=== PATIENT | female | born 1950 | race Caucasian/White ===

== ENCOUNTER 2016-10-04 12:08 | Emergency (ER) | payer OTHER, MEDICARE ==
[~2016-10-04] VITALS: Ht 162.6 cm; Wt 77.1 kg
[~2016-10-04 12:08] MED LIST: AUGMENTIN 875 M1 TAB PO; AUGMENTIN 875-1 EACH PO; HYDRODIURIL 112.5 M1 PO; LABETALOL HCL200 M1 PO; LEVSIN-SL0.125 MG PO; OMEPRAZOLE40 MG PO
--- NOTE | 2016-10-04 12:25 | ED SYNCOPE COMPLAINT ---
History of Present Illness General Chief Complaint: Syncope and Near-Syncope Stated Complaint: SYNCOPAL EPISODE THIS AM Source: patient, old records Exam Limitations: no limitations Vital Signs & Intake/Output Vital Signs & Intake/Output Vital Signs Date Time Temp Pulse Resp B/P B/P Pulse O2 O2 Flow FiO2 Mean Ox Delivery Rate 10/04 1425 98.2 58 20 160/68 97 Room Air 10/04 1233 98.2 74 20 133/73 98 Room Air Allergies Coded Allergies: Tetanus Vaccines and Toxoid (TETANUS VACCINES & TOXOID) (UNKNOWN 09/29/15) Uncoded Allergies: SEASONAL AND DUST (09/29/15) Reconcile Medications Cetirizine HCl (Zyrtec) 10 MG TABLET 1 TAB PO DAILY ALLERGIES (Reported) Cholecalciferol (Vitamin D3) (Vitamin D) 1,000 UNIT TABLET 1 TAB PO DAILY SUPPLEMENT (Reported) Docusate Sodium (Stool Softener) 100 MG CAPSULE 1 CAP PO DAILY STOOL SOFTENER (Reported) Hydrochlorothiazide 12.5 MG CAPSULE 1 CAP PO DAILY WATER RETENTION (Reported) Labetalol HCl 200 MG TABLET 1 TAB PO BID HBP (Reported) Lisinopril 10 MG TABLET 1 TAB PO DAILY HEART (Reported) Meclizine HCl 25 MG TABLET 1 TAB PO TIDPRN PRN dizziness Potassium Chloride 10 MEQ TABLET.ER 1 TAB PO DAILY SUPPLEMENT (Reported) Pravastatin Sodium 40 MG TABLET 1 TAB PO DAILY CHOLESTEROL (Reported) Triage Note: C/O SYNCOPAL EPISODE AT HOME WHILE WALKING IN BEDROOM. STATE SHE FELT WEAK AND DIZZY PRIOR TO INCIDENT. RECENTLY DXD WITH VERTIGO BY DR. PAIGE, JUST FINSHED PREDNISONE. C/O PAIN IN EPIGASTRIC AREA AND LEFT KNEE. Triage Nurses Notes Reviewed? yes Timing: single episode today Precipitating Factors: lightheadedness Loss of Consciousness: brief (seconds) Associated Symptoms: anterior chest pain from fall reproducible with palpation HPI: 66 year old female with history of HTN, GERD, fibromyalgia, hiatal hernia, depressive disorder, esophageal repair, total abdominal hysterectomy, left knee replacement presents emergency room with her for evaluation after she had a brief syncopal episode while home person one hour prior to arrival. Patient states that she was in her normal state of health this morning woke up had breakfast and was feeling okay. She states that she had the urge to defecate and when she was walking to the bathroom she became lightheaded and states she briefly lost consciousness. She struck her chest against the hardwood floor. She did not hit her head she states her states there is been no change in her mental status. She denies nausea vomiting headache neck or back pain. The chest pain is worse with change in position and movement palpation and laughing very no cough no hemoptysis. No abdominal pain. She denies any arm injury. She's also complaining of right anterior knee pain is nonradiating. No hip foot or ankle pain numbness or tingling she is not taken anything for symptoms no history of syncope in the past. She finished a course of prednisone yesterday for recently diagnosed vertigo last week. She denies any dizziness or vision changes. she took her bp after the fall and her systolic was 94 per the pat. no change in mental status per (CONSTANTINE PARKER) Past History Travel History Traveled to [place] past 21 day No Medical History Any Pertinent Medical History? 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 No (CONSTANTINE PARKER) Review of Systems Review of Systems Constitutional: Reports: see HPI. All Other Systems: Reviewed and Negative Comments Review of systems: See HPI, All other systems negative. Constitutional, no chills no fever, no malaise no weight loss HEENT: No visual changes no sore throat no congestion, no ear pain Cardiovascular: No chest pain , no palpitation , no orthopnea Skin: no rashes, no change in skin Respiratory: No dyspnea no cough no sputum no hemoptysis GI: No nausea no vomiting, no diarrhea, no bloating/constipation : No dysuria No hematuria, no frequency, no discharge Muscle skeletal: No joint pain, no joint swelling, no back pain, no neck pain, Neurologic: No numbness no confusion, no headache Psych: No stress no depression,. Heme/endocrine: No bruising no bleeding Immunology: No lymphadenopathy (CONSTANTINE PARKER) Physical Exam Physical Exam General Appearance: well developed/nourished, alert, awake Cranial Nerves: normal hearing, normal speech, PERRL Comments: Well-developed well-nourished person in no acute distress HEENT: Normal EENT exam; PERRL, EOMI, no nystagmus. HEAD is atraumatic. moist mucous membranes. Neck: Supple, no lymphadenopathy, normal range of motion without pain or tenderness Back: Nontender, Full range of motion Cardiovascular: Regular rate and rhythms no murmurs rubs or gallops, normal JVP Respiratory: Right sided anterior Chest tender, no ecchymosis .There were no bony deformities, no asymmetry. No respiratory distress. Patient speaking in full complete sentences. Breath sounds clear to auscultation bilaterally: NO W/R /R Abdomen: Soft, nontender nondistended, no appreciable organomegaly. Normal bowel sounds. No rebound/guarding, No appreciable enlargement of the abdominal aorta, No ascites. UPPER Extremity: No edema, full range of motion of extremities, normal and equal pulses bilaterally, 5 out of 5 strength noted to bilateral upper extremities Hip/Pelvis: Atraumatic/Stable. FROM. No pain with pelvic compression Knee: Atraumatic/stable. FROM. No joint swelling, no effusion. No laxity. No pain with ROM Leg: Atraumatic. Nontender. No edema, 5 out of 5 strength in the lower extremity, normal dorsiflexion of great toe bilaterally, gross sensation is intact. Ankle/Foot: Atraumatic/stable. Skin intact. FROM. No swelling, no effusion. No laxity on exam Pulses: Normal/equal DP/PT pulses bilaterally. Brisk cap refill Neuro: Alert oriented x3, motor sensory normal, cranial nerves II through XII grossly intact. There were no obvious focal neurologic abnormalities. Skin: No appreciable rash on exposed skin, skin is warm and dry. Psych: Mood and affect is normal, memory and judgment is normal. Core Measures ACS in differential dx? Yes CVA/TIA Diagnosis: No Severe Sepsis Present: No Septic Shock Present: No (CONSTANTINE PARKER) Progress Differential Diagnosis: AMI, drug induced syncope, orthostatic syncope, other valvular disease, pulmonary embolus, seizure, subarachnoid hem., ventricular tach/fib, arrhythmia vasovagal episode Plan of Care: Orders Procedure Date/time Status Regular Diet 10/04 D Active TROPONIN LEVEL 10/04 1700 Complete EKG 10/04 1700 Active MISTAKE 10/04 1239 Active Telemetry/Equipment Sterilizer 10/04 1239 Active TROPONIN LEVEL 10/04 1239 Complete MAGNESIUM 10/04 1239 Complete COMPREHENSIVE METABOLIC PANEL 10/04 1239 Complete CBC WITHOUT DIFFERENTIAL 10/04 1239 Complete EKG 10/04 1218 Active Laboratory Tests 10/04/16 1702: Troponin I < 0.01 10/04/16 1255: Anion Gap 11, Estimated GFR 41 L, BUN/Creatinine Ratio 26.2 H, Glucose 100 H, Calcium 9.6, Magnesium 1.6, Total Bilirubin 0.5, AST 15, ALT 29, Alkaline Phosphatase 79, Troponin I < 0.01, Total Protein 6.5, Albumin 3.9, Globulin 2.6, Albumin/Globulin Ratio 1.5, CBC w Diff NO MAN DIFF REQ, RBC 4.24, MCV 91.0, MCH 30.9, RDW 14.2, MPV 7.8, Gran % 71.6, Lymphocytes % 19.8 L, Monocytes % 5.3, Eosinophils % 3.0, Basophils % 0.3, Absolute Granulocytes 7.1 H, Absolute Lymphocytes 2.0, Absolute Monocytes 0.5, Absolute Eosinophils 0.3, Absolute Basophils 0, PUBS MCHC 33.9 Labs ordered old records reviewed Tylenol by mouth ordered x-rays ordered case discussed with Dr. Landry. 10/04/2016 2:08:14 PM I discussed with the patient all her lab results the need for repeat troponin and EKG at 1700 pending x-ray Discussed with patient her x-ray findings she is resting, but this time declining anything else for pain when offered 10/04/2016 6:02:30 PM I discussed with the patient at length all of their results. I had an extensive conversation regarding need for close follow up with their primary care physician this week as well as return precautions. I answered all of their questions, they feel comfortable with the plan and follow-up care. I discussed the medications that they will receive with the patient. I gave them signs and symptoms that could indicate an adverse reaction. I have advised them to limit their activities until they can see how they respond to the medication. (VERÓNICA HOSKINS,CONSTANTINE) Diagnostic Imaging: Viewed by Me: Radiology Read. Discussed w/RAD: Radiology Read. Radiology Impression: PATIENT: RAJENDRA FRANCO PRESENT AGE: 66 PATIENT ACCOUNT NO: [id number] : 49 LOCATION: [facility] ORDERING PHYSICIAN: CONSTANTINE HOSKINS SERVICE DATE: 10/04/16 EXAM TYPE: RAD - XRY-RIBS UNILATERAL-RIGHT EXAMINATION: XR RIBS, RIGHT CLINICAL INFORMATION : Syncope. Fall. Rib pain. COMPARISON: Chest x-ray 04/09/2015. TECHNIQUE: 3 views of the right ribs were obtained. FINDINGS: The heart is normal in size. The lungs are clear. There is mild elevation of the right hemidiaphragm, slightly less pronounced than the prior study. There is no apparent rib fracture. There is a stable scoliosis of the spine. IMPRESSION: No apparent right rib fractures. DICTATED BY: KELLY GONCALVES MD DATE/TIME DICTATED:1408 WEIGHER PRODUCTION:[employer].GREGORIO DATE/TIME TRANSCRIBED:10/04/161408 CONFIDENTIAL, DO NOT COPY WITHOUT APPROPRIATE AUTHORIZATION. <Electronically signed in Other Vendor System> SIGNED BY: KELLY GONCALVES MD 10/04/16 1415 , PATIENT: RAJENDRA FRANCO PRESENT AGE: 66 PATIENT ACCOUNT NO: [id number] : 49 LOCATION: [facility] ORDERING PHYSICIAN: CONSTANTINE HOSKINS SERVICE DATE: 10/04/16-1245 EXAM TYPE: RAD - XRY-KNEE COMPLETE RIGHT EXAMINATION: XR KNEE, RIGHT CLINICAL INFORMATION: Fall. Pain. COMPARISON: None TECHNIQUE: Four views of the right knee. FINDINGS: No acute fracture or subluxation. Mild medial compartment joint space narrowing. No joint effusion. Mild anterior soft tissue prominence at the proximal tibia. IMPRESSION : No acute fracture or malalignment. Mild degenerative changes. DICTATED BY: WOLF CARRILLO MD DATE/TIME DICTATED:10/04/161407 WEIGHER PRODUCTION: GREGORIO DATE/TIME TRANSCRIBED:10/04/161407 CONFIDENTIAL, DO NOT COPY WITHOUT APPROPRIATE AUTHORIZATION. <Electronically signed in Other Vendor System> SIGNED BY: WOLF CARRILLO MD 10/04/16 1415 Initial ED EKG: normal sinus rhythm at 70, no acute ST segment changes. Normal axis Prior EKG: unchanged Repeat EKG: unchanged Rhythm Strip: normal sinus rhythm (CONSTANTINE PARKER) Departure Departure Time of Disposition: 1754 Disposition: HOME OR SELF CARE Condition: Stable Clinical Impression Primary Impression: Vasovagal syncope Secondary Impressions: Rib contusion Referrals: LISA ROBERTSON,ULISES Santamaria (PCP/Family) Additional Instructions: Meclizine as directed. This was sent to [facility]. Follow up with her primary care physician this week. [place] diet drink plenty of clear fluids. Return anytime sooner with any concerns. Departure Forms: Customer Survey General Discharge Information Prescriptions: Current Visit Scripts Meclizine HCl 1 TAB PO TIDPRN PRN dizziness #15 TAB (CONSTANTINE PARKER) PA/ORDERING MACHINE OPERATOR Co-Sign Statement Statement: ED Attending supervision documentation- [X] I saw and evaluated the patient. I have also reviewed all the pertinent lab results and diagnostic results. I agree with the findings and the plan of care as documented in the PA's/ORDERING MACHINE OPERATOR's documentation. [X] I have reviewed the ED Record and agree with the PA's/ORDERING MACHINE OPERATOR's documentation. [] Additions or exceptions (if any) to the PAs/ORDERING MACHINE OPERATOR's note and plan are summarized below: [] (RAMYA ROBERTSON,TIERA)
[2016-10-04] MEDS ORDERED: POTASSIUM CHLO10 ME4 PO (12:38)
[2016-10-04] MEDS ORDERED: LISINOPRIL10 M1 PO (12:39)
[2016-10-04] MEDS ORDERED: HYDROCHLOROTH12.5 M3 PO (12:39)
[2016-10-04] MEDS ORDERED: PRAVASTATIN SOD40 M2 PO (12:39)
[2016-10-04] MEDS ORDERED: VITAMIN D1000 UNIT PO (12:41)
[2016-10-04] MEDS ORDERED: STOOL SOFTENER100 M3 PO (12:42)
[2016-10-04] MEDS ORDERED: ZYRTEC10 M3 PO (12:42)
[2016-10-04 13:19] LABS: ABSOLUTE BASOPHIL COUNT 0 /CUMM (0.0-0.2); ABSOLUTE EOSINOPHIL COUNT 0.3 /CUMM (0.0-0.7); ABSOLUTE GRANULOCYTE CT 7.1 /CUMM (1.4-6.5); ABSOLUTE MONOCYTE COUNT 0.5 /CUMM (0.10-0.60); BASOPHIL % 0.3 % (0.0-2.0); GRANULOCYTE % 71.6 % (42.2-75.2); HEMATOCRIT 38.6 % (37-47); MEAN CORPUSCULAR HGB 30.9 PG (27.0-31.0); MEAN CORPUSCULAR HGB CONC 33.9 G/DL (33.0-37.0); MEAN PLATELET VOLUME 7.8 FL (7.4-10.4); PLATELET COUNT 277 /CUMM (130-400); RBC DISTRIBUTION WIDTH 14.2 % (11.5-14.5); RED BLOOD CELL CT 4.24 /CUMM (4.20-5.40); WHITE BLOOD CELL COUNT 9.9 /CUMM (4.8-10.8)
--- NOTE | 2016-10-04 14:15 | RADIOLOGY REPORT ---
EXAMINATION: XR KNEE, RIGHT CLINICAL INFORMATION: Fall. Pain. COMPARISON: None TECHNIQUE: Four views of the right knee. FINDINGS: No acute fracture or subluxation. Mild medial compartment joint space narrowing. No joint effusion. Mild anterior soft tissue prominence at the proximal tibia. IMPRESSION: No acute fracture or malalignment. Mild degenerative changes.
--- NOTE | 2016-10-04 14:15 | RADIOLOGY REPORT ---
EXAMINATION: XR RIBS, RIGHT CLINICAL INFORMATION: Syncope. Fall. Rib pain. COMPARISON: Chest x-ray 04/09/2015. TECHNIQUE: 3 views of the right ribs were obtained. FINDINGS: The heart is normal in size. The lungs are clear. There is mild elevation of the right hemidiaphragm, slightly less pronounced than the prior study. There is no apparent rib fracture. There is a stable scoliosis of the spine. IMPRESSION: No apparent right rib fractures.
[2016-10-04 14:25] VITALS: BP 160/68
[2016-10-04] MEDS ORDERED: MECLIZINE HCL25 MG PO (17:56)
== END 2016-10-04 18:00 ==
LOC: ERH 12:08
PROVIDERS: Physician Assistant Medical
DX: R55 Syncope and collapse (principal); S20.219A Contusion of unspecified front wall of thorax, initial encounter; R07.9 Chest pain, unspecified; W19.XXXA Unspecified fall, initial encounter; Y92.009 Unspecified place in unspecified non-institutional (private) residence as the place of occurrence of the external cause; Y93.9 Activity, unspecified
CPT/HCPCS: 71100-RT; 73562-RT; 93005; 93010

== ENCOUNTER 2017-09-06 14:33 | Inpatient (IN) | payer OTHER, MEDICARE ==
[~2017-09-06] VITALS: Ht 162.6 cm; Wt 76.0 kg
[~2017-09-06 14:33] MED LIST changes: +HYDROCHLOROTH12.5 M3 PO; +LISINOPRIL10 M1 PO; +MECLIZINE HCL25 MG PO; +POTASSIUM CHLO10 ME4 PO; +PRAVASTATIN SOD40 M2 PO; +STOOL SOFTENER100 M3 PO; +VITAMIN D1000 UNIT PO; +ZYRTEC10 M3 PO
--- NOTE | 2017-09-06 14:42 | ED DYSPNEA/ASTHMA COMPLAINT ---
History of Present Illness General Chief Complaint: Upper Respiratory Sx/Fever Stated Complaint: RESPIRATORY DIFFICULTY POST COLONOSCOPY Source: patient, old records Exam Limitations: no limitations Vital Signs & Intake/Output Vital Signs & Intake/Output Vital Signs Date Time Temp Pulse Resp B/P B/P Pulse O2 O2 Flow FiO2 Mean Ox Delivery Rate 09/06 2312 Nasal Cannula 09/06 2235 99.1 86 16 178/84 97 Nasal 2.0L Cannula 09/06 2030 100.7 09/06 1917 100.7 89 18 180/92 96 Nasal 2.0L Cannula 09/06 1858 96 Nasal 2.0L Cannula 09/06 1714 87 18 174/84 94 Nasal 2.5L Cannula 09/06 1610 92 Nasal 2.0L Cannula 09/06 1458 99.5 88 22 188/90 98 Nasal 1.5L Cannula 09/06 1457 96 Nasal 2.0L Cannula ED Intake and Output 09/07 0000 09/06 1200 Intake Total 1000 Output Total Balance 1000 Intake, IV 1000 Patient 163 lb Weight Weight Reported by Patient Measurement Method Allergies Coded Allergies: Tetanus Vaccines and Toxoid (TETANUS VACCINES & TOXOID) (UNKNOWN 09/29/15) Uncoded Allergies: SEASONAL AND DUST (09/29/15) Triage Note: PT BROUGHT FROM GI AFTER DESATURATION INTO 60s DURING COLONOSCOPY AFTER REPOSITION ON TABLE. PT BAGGED AND IMPROVED TO 90s. POST PROCEDURE, O2 SAT AT 98% ON NRB. HOWEVER, PT WITH INCREASED SECRETIONS RANGING FROM YELLOW TO BROWN-TINGED, WET, PRODUCTIVE COUGH. AUDIBLE WHEEZE AND CRACKLES. MILDLY HYPERTENSIVE, BUT STABLE. COUGH IS CHRONIC FOR 5+ YEARS, BUT CURRENTLY WORSE THAN BASELINE. O2 SAT ON ARRIVAL 95% ON 2L MO Triage Nurses Notes Reviewed? 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 Rothman and after the procedure patient had acute onset of significant coughing episodes unrelieved with nebulizer treatment patient does state that today prior to onset of the procedure she had no complaints it is noted through progress notes that patient was given nebulizer oxygen saturation supplementation Patient denies any chest pain arm pain jaw pain Patient is complaining of mild nausea with the persistent coughing. It is noted at approximate 9 days ago patient had a routine endoscopy performed with no competitions (Lico Pyle) Reconcile Medications Albuterol Sulfate (Ventolin Hfa) 90 MCG HFA.AER.AD 2 PUF INH PRN ASTHMA ( Reported) Benzonatate 200 MG CAPSULE 1 CAP PO TIDPRN PRN COUGH (Reported) Folic Acid 1 MG TABLET 1 TAB PO DAILY SUPPLEMENT (Reported) Hydrochlorothiazide 12.5 MG CAPSULE 1 CAP PO DAILY WATER RETENTION (Reported) Labetalol HCl 200 MG TABLET 1 TAB PO BID HBP (Reported) Lisinopril 10 MG TABLET 1 TAB PO DAILY HEART (Reported) Methimazole 5 MG TABLET 1 TAB PO MONWEDFRISUN THYROID (Reported) Methotrexate 2.5 MG TABLET 3 TAB PO QTHURS RA (Reported) Montelukast Sodium 10 MG TABLET 1 TAB PO DAILY ALLERGIES/ASTHMA (Reported) Mv,Ca,Min/Iron Fum/FA/Vit K (Multi For Her Tablet) 18 MG IRON-600 MCG-80 MCG TABLET 1 TAB PO DAILY SUPPLEMENT (Reported) Potassium Gluconate (Potassium) 595 MG (99 MG) TABLET 1 TAB PO DAILY SUPPLEMENT (Reported) Pravastatin Sodium 40 MG TABLET 1 TAB PO DAILY CHOLESTEROL (Reported) (John ROBERTSON,Paramjit Garcia) Past History Medical History Any Pertinent Medical History? see below for history Neurological: NONE EENT: TORN ESOPHAGUS Cardiovascular: hypertension Respiratory: PARALYZED R DIAPHRAM Gastrointestinal: diverticulitis, GERD Hepatic: NONE Renal: KIDNEY CYST Musculoskeletal: fibromyalgia, ARTHRITIS Psychiatric: NONE Endocrine: NONE Blood Disorders: NONE Cancer(s): SKIN CANCER ON HANDS ?LESION ON SPLEEN OCCASIONAL CAREGIVER/Reproductive: NONE History of MRSA: No History of VRE: No History of CDIFF: No Surgical History Surgical History: non-contributory Psychosocial History Who do you live with Spouse Services at Home None What is your primary language Ma[place] Family History Hx Contributory? No (iLco Pyle) Review of Systems Review of Systems Constitutional: Reports: see HPI. Denies: chills, fever. EENTM: Reports: no symptoms. Respiratory: Reports: see HPI, cough. Cardiovascular: Reports: no symptoms. GI: Reports: see HPI. Genitourinary: Reports: no symptoms. Musculoskeletal: Reports: no symptoms. Skin: Reports: no symptoms. Neurological/Psychological: Reports: no symptoms. Hematologic/Endocrine: Reports: no symptoms. Immunologic/Allergic: Reports: no symptoms. All Other Systems: Reviewed and Negative (Lico Pyle) Physical Exam Physical Exam General Appearance: mild distress Head: atraumatic Eyes: Bilateral: normal appearance. Ears, Nose, Throat: hearing grossly normal Respiratory: DECREASE BREATH SOUNDS IN THE LEFT POSTERIOR LUNG Cardiovascular: regular rate/rhythm Peripheral Pulses: 2+ radial (R) Gastrointestinal: normal bowel sounds, soft, non-tender Neurologic/Psych: no motor/sensory deficits, awake Skin: intact Core Measures ACS in differential dx? Yes CVA/TIA Diagnosis No Sepsis Present: No Sepsis Focused Exam Completed? No (Lico Pyle) Progress Differential Diagnosis: asthma, AMI, bronchitis, costochondritis, CHF, COPD, musculoskeletal pain, pericarditis, pulmonary embolism, pneumonia, pneumothorax, rib fracture, unstable angina Plan of Care: Orders Procedure Date/time Status Nothing by Mouth 09/07 B Active CBC WITHOUT DIFFERENTIAL 09/07 06 Active BASIC ELECTROLYTES PLUS BUN&CR 09/07 06 Active Pathway - chart 09/06 2129 Active House Staff 09/06 2129 Active Patient Data 09/06 2129 Active Code Status 09/06 2129 Active Patient Data 09/06 2116 Active Saline Lock 09/06 2104 Active Misc Message 09/06 2104 Active ED Holding Orders 09/06 2104 Active Admit to inpatient 09/06 2104 Active Vital Signs 09/06 2104 Active Code Status 09/06 2104 Complete RAPID VIRAL INFLUENZA A 09/06 202 Complete EKG 09/06 1905 Active Intake & Output 09/06 1855 Active BLOOD CULTURE 09/06 1707 Active LOWER RESPIRATORY CULTURE 09/06 1531 Active TROPONIN LEVEL 09/06 1531 Complete D-DIMER 09/06 1531 Complete COMPREHENSIVE METABOLIC PANEL 09/06 1531 Complete CBC WITHOUT DIFFERENTIAL 09/06 1531 Complete EKG 09/06 1531 Active SWALLOW EVALUATION 09/06 UNK Active TRC EVALUATION (GEN) 09/06 UNK Active AEROSOL (GEN) 09/06 UNK Active VTE Mechanical Prophylaxis 09/06 UNK Active Precautions 09/06 UNK Active Current Medications Sig/Mikaela Start time Last Medication Dose Stop Time Status Admin Pravastatin Sodium 20 MG 1700 09/07 1700 AC (Pravachol) Folic Acid 1 MG DAILY 09/07 1000 AC (Folic Acid) Hydrochlorothiazide 12.5 MG DAILY 09/07 1000 AC (Hydrodiuril) Lisinopril 10 MG DAILY 09/07 1000 AC (Prinivil) Montelukast Sodium 10 MG DAILY 09/07 1000 AC (Singulair) Ampicillin Sodium/ 1,500 MG Q6 09/06 2359 AC Sulbactam Sodium (Unasyn) Sodium Chloride 100 ML (Normal Saline 0.9%) Albuterol Sulfate 2 PUF 4 TIMES/DAY PRN 09/06 2345 AC (Ventolin) Methimazole 5 MG .[MONWEDFRISUN] 09/06 234 UNVr (Tapazole 5 MG Tablet) Sodium Chloride 1,000 ML Q10H 09/06 2345 AC (Normal Saline 0.9%) Guaifenesin 600 MG Q12 09/06 2338 AC (Mucinex) Labetalol HCl 200 MG BID 09/06 2335 AC (Trandate-Normodyne 200MG Tab) Benzonatate 100 MG TID 09/06 233 AC (Tessalon Capsule) Heparin Sodium 5,000 UNIT Q8 09/06 2200 AC 09/06 (Porcine) 2225 Laboratory Tests 09/06/17 1645: Anion Gap 13, Estimated GFR 41 L, BUN/Creatinine Ratio 14.6, Glucose 131 H, Calcium 9.7, Total Bilirubin 0.6, AST 17, ALT 25, Alkaline Phosphatase 77, Troponin I < 0.01, Total Protein 6.3, Albumin 3.6, Globulin 2.7, Albumin/ Globulin Ratio 1.3, D-Dimer High Sensitivty 6437 H, CBC w Diff NO MAN DIFF REQ, RBC 3.64 L, MCV 93.0, MCH 31.3 H, MCHC 33.6, RDW 14.3, MPV 6.9 L, Gran % 92.2 H, Lymphocytes % 5.0 L, Monocytes % 2.5, Eosinophils % 0.3, Basophils % 0, Absolute Granulocytes 10.4 H, Absolute Lymphocytes 0.6 L, Absolute Monocytes 0.3, Absolute Eosinophils 0, Absolute Basophils 0 Microbiology 09/06 2229 NASOPHARYN: Influenza Virus A & B Rapid Smear - COMP 09/06 1825 BLOOD: Blood Culture - RECD 09/06 1815 BLOOD: Blood Culture - RECD 09/06 1550 LOWER RESP: Respiratory Culture - RES 09/06 1550 LOWER RESP: Gram Stain - RES Patient upon initial examination was noted to be significantly coughing up yellow sputum culture was obtained patient has concerns of bronchospasms no hypoxia however Patient was given guaifenesin which improved her coughing episodes and nebulizer treatments CT scan was resulted showing concerns of multilobar pneumonia and patchy infiltrates patient also had fever in the emergency room patient was given Unasyn for possible early infiltrate aspiration pneumonia in which she states that prior to the procedure she was in her normal state health however she does have a chronic cough Discussed admission with patient and family members were aware Diagnostic Imaging: Viewed by Me: CT Scan. Radiology Impression: acute abnormality Initial ED EKG: MULTIPLE ARTIFACT 108 BPM, Comments: PATIENT: RAJENDRA FRANCO PRESENT AGE: 67 PATIENT ACCOUNT NO: [id number] : 49 LOCATION: [facility] ORDERING PHYSICIAN: Lico HOSKINS SERVICE DATE: 09/06/17 EXAM TYPE: CAT - CTA CHEST-PULMONARY EMBOLISM EXAMINATION: CT ANGIOGRAM OF THE CHEST WITH AND WITHOUT CONTRAST (CT PULMONARY ANGIOGRAM FOR PE) CLINICAL INFORMATION: Reason for Study:
Presumptive Dx: COUGH, HEMOPTYSIS, ELEVATED DIMER
Signs Symptoms: RM 22
COMPARISON: 03/05/2012 TECHNIQUE: Prior to contrast administration, noncontrast localization images were obtained. Subsequently, multidetector volumetric imaging was performed from the thoracic inlet to below the diaphragms following the administration of 80 mL Omnipaque 350 intravenous contrast. No contrast reaction reported. Sagittal, coronal, and MIP oblique sagittal reformatted images were obtained on the CT workstation, uploaded to PACS, and reviewed. FINDINGS: There is no filling defect to suggest a pulmonary embolism. Imaging of the lung posadas. Centrally there is no evidence for bulky adenopathy. The hilar regions are comparable to previous. No bulky changes here. Imaging lung posadas. Right lung; Nodule in the right upper lung. Appears stable from previous. Image 17. 3 mm. Patchy atelectasis or infiltrate right base. New nodule at the left base. 4 mm. Image 33. Left lung; Areas of groundglass and patchy infiltrate multifocal left upper lung. Is also evidence of groundglass patchy change in the left lower lobe. There is no effusion here. New nodule left base image 32. 3 mm. Another nodule pleural-based. Image 34. 4 mm. IMPRESSION: No filling defect to suggest pulmonary embolism. Multifocal patchy infiltrate most noted in the left upper lung but also areas of the left base greater than right base. Consistent with infiltrates. Other nodules described which appears new from previous.. Recommend low-dose follow-up in 9 months DICTATED BY: Jordy Baez MD DATE/TIME DICTATED:09/06/172028 (Lico Pyle) Departure Departure Disposition: STILL A PATIENT Condition: Stable Clinical Impression Primary Impression: Pneumonia Secondary Impressions: Bronchospasm, Fever Referrals: Allen Villa MD (PCP/Family) Departure Forms: Customer Survey General Discharge Information Admission Note Spoke With: Alhaji Feliciano MD Documentation of Exam: Documentation of any treatments & extenuating circumstances including Concerns Regarding Discharge (functional status, medication knowledge or non-compliance, living conditions, etc.) that warrant an admission rather than observation: [ Patient requires IV antibiotics pulmonary consultation and infectious disease consultation and repeat labs nebulizer treatments antipyretics blood culture and sputum culture pending] (Lico Pyle) PA/[employer] Co-Sign Statement Statement: ED Attending supervision documentation- [x] I saw and evaluated the patient. I have also reviewed all the pertinent lab results and diagnostic results. I agree with the findings and the plan of care as documented in the PA's/[employer]'s documentation. 09/06/17, 19:30.... pt with likely aspiration pneumonia, after colonoscopy, diminished breath sounds on exam, merits 02 support and iv abx. [] I have reviewed the ED Record and agree with the PA's/[employer]'s documentation. [] Additions or exceptions (if any) to the PAs/[employer]'s note and plan are summarized below: [] (John ROBERTSON,Paramjit Garcia) Critical Care Note Critical Care Note Critical Care Time: 30-74 min (Lico Pyle)
[2017-09-06 17:11] LABS: ABSOLUTE BASOPHIL COUNT 0 /CUMM (0.0-0.2); ABSOLUTE EOSINOPHIL COUNT 0 /CUMM (0.0-0.7); ABSOLUTE GRANULOCYTE CT 10.4 /CUMM (1.4-6.5); ABSOLUTE LYMPH COUNT 0.6 /CUMM (1.2-3.4); ABSOLUTE MONOCYTE COUNT 0.3 /CUMM (0.10-0.60); BASOPHIL % 0 % (0.0-2.0); EOSINOPHIL % 0.3 % (0-5); HEMATOCRIT 33.9 % (37-47); MEAN CORPUSCULAR HGB 31.3 PG (27.0-31.0); MEAN CORPUSCULAR HGB CONC 33.6 G/DL (33.0-37.0); MEAN PLATELET VOLUME 6.9 FL (7.4-10.4); PLATELET COUNT 301 /CUMM (130-400); RBC DISTRIBUTION WIDTH 14.3 % (11.5-14.5); RED BLOOD CELL CT 3.64 /CUMM (4.20-5.40); WHITE BLOOD CELL COUNT 11.3 /CUMM (4.8-10.8)
[2017-09-06 17:21] LABS: GRANULOCYTE % 92.2 % (42.2-75.2)
[2017-09-06] MEDS ORDERED: METHIMAZOLE5 M1 PO (17:45)
[2017-09-06] MEDS ORDERED: METHOTREXATE2.5 M2 PO (17:45)
[2017-09-06] MEDS ORDERED: MONTELUKAST SOD10 M1 PO (17:46)
[2017-09-06] MEDS ORDERED: BENZONATATE200 M1 PO (17:46)
[2017-09-06] MEDS ORDERED: FOLIC ACID1 M1 PO (17:46)
[2017-09-06] MEDS ORDERED: POTASSIUM99 M1 PO (17:47)
[2017-09-06] MEDS ORDERED: MULTI FOR HER1 EAC2 PO (17:48)
[2017-09-06] MEDS ORDERED: VENTOLIN HFA18 GM INH (17:48)
--- NOTE | 2017-09-06 20:45 | CT SCAN REPORT ---
EXAMINATION: CT ANGIOGRAM OF THE CHEST WITH AND WITHOUT CONTRAST (CT PULMONARY ANGIOGRAM FOR PE) CLINICAL INFORMATION: Reason for Study:
Presumptive Dx: COUGH, HEMOPTYSIS, ELEVATED DIMER
Signs Symptoms: RM 22
COMPARISON: 03/05/2012 TECHNIQUE: Prior to contrast administration, noncontrast localization images were obtained. Subsequently, multidetector volumetric imaging was performed from the thoracic inlet to below the diaphragms following the administration of 80 mL Omnipaque 350 intravenous contrast. No contrast reaction reported. Sagittal, coronal, and MIP oblique sagittal reformatted images were obtained on the CT workstation, uploaded to PACS, and reviewed. FINDINGS: There is no filling defect to suggest a pulmonary embolism. Imaging of the lung posadas. Centrally there is no evidence for bulky adenopathy. The hilar regions are comparable to previous. No bulky changes here. Imaging lung posadas. Right lung; Nodule in the right upper lung. Appears stable from previous. Image 17. 3 mm. Patchy atelectasis or infiltrate right base. New nodule at the left base. 4 mm. Image 33. Left lung; Areas of groundglass and patchy infiltrate multifocal left upper lung. Is also evidence of groundglass patchy change in the left lower lobe. There is no effusion here. New nodule left base image 32. 3 mm. Another nodule pleural-based. Image 34. 4 mm. IMPRESSION: No filling defect to suggest pulmonary embolism. Multifocal patchy infiltrate most noted in the left upper lung but also areas of the left base greater than right base. Consistent with infiltrates. Other nodules described which appears new from previous.. Recommend low-dose follow-up in 9 months
--- NOTE | 2017-09-06 21:37 | History & Physical ---
AbdelrahmanAvella 09/06/172133: General Information and HPI MD Statement: I have seen and personally examined RAJENDRA FRANCO and documented this H& P. The patient is a 67 year old F who presented with a patient stated chief complaint of cough with sputum and fever []. 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 Patient reported that she was in her usual state of health this morning when she went for scheduled routine colonoscopic procedure this morning. According to ED note she was found to be desaturating in 60s during the procedure and she was given oxygen. After the procedure and recovery he was given oxygen and nebulization treatment but she was coughing and bringing phlegm but before procedure she didn't have a cough all the patient has a history of chronic dry cough due to right hemidiaphragm paralysis. Patient was sent to ED for further evaluation. In ED patient was having cough and she was bringing yellow colored phlegm. Patient was also having temperature. Her sputum was yellow in color but nonbloody and [id number]. Denied any chest pain, palpitation, short of breath at rest, nausea, vomiting, headache, lightheadedness, trauma, sick contacts, diarrhea, chills, constipation , abdominal pain and dysuria. Patient also reported that she has cough whenever she tries to change her position. According to the patient she has difficulty in swallowing as she has history of esophageal strictures and GERD. Patient told us she had endoscopy one-week back at [place] and told her that there are 2 narrowing sites possibly due to stricture. Patient is scheduled for an esophagogram next week. Patient also had esophageal motility test in the past for esophageal motility problem. Patient had a screening colonoscopy this morning. During colonoscopy there was pandiverticulosis coli and polyps in colon and rectum. Biopsies were taken and patient will follow up pathology results in outpatient with Dr. Daley. ED course: Vitals: Temperature 100.7, pulse 89, respiratory rate 18, blood pressure 180/92, oxygen saturation 96% on 2 L of oxygen. Labs: WBC count 11.3, hemoglobin 11.4, hematocrit 33.9, platelet 301, sodium 141 , potassium 3.4, BUN 19, creatinine 1.3, anion gap 13, BUNs/creatinine ratio 14.6, glucose 131, calcium 9.7, AST 17, ALT 25, alkaline phosphatase 77, troponin less than 0.01, d-dimer 6437 Patient strep and flu test is negative blood cultures were obtained in ED also sputum culture. CTA was done in ED to rule out PE that was negative. But it showed multi focal patchy infiltration noted on the left upper lung and also on the left base greater than right base. Pulmonary nodule recommended low-dose CT scan follow-up in 9 months. Allergies/Medications Allergies: Coded Allergies: Tetanus Vaccines and Toxoid (TETANUS VACCINES & TOXOID) (UNKNOWN 09/29/15) Uncoded Allergies: SEASONAL AND DUST (09/29/15) Home Med list Albuterol Sulfate (Ventolin Hfa) 90 MCG HFA.AER.AD 2 PUF INH PRN ASTHMA ( Reported) Benzonatate 200 MG CAPSULE 1 CAP PO TIDPRN PRN COUGH (Reported) Folic Acid 1 MG TABLET 1 TAB PO DAILY SUPPLEMENT (Reported) Hydrochlorothiazide 12.5 MG CAPSULE 1 CAP PO DAILY WATER RETENTION (Reported) Labetalol HCl 200 MG TABLET 1 TAB PO BID HBP (Reported) Lisinopril 10 MG TABLET 1 TAB PO DAILY HEART (Reported) Methimazole 5 MG TABLET 1 TAB PO MONWEDFRISUN THYROID (Reported) Methotrexate 2.5 MG TABLET 3 TAB PO QTHURS RA (Reported) Montelukast Sodium 10 MG TABLET 1 TAB PO DAILY ALLERGIES/ASTHMA (Reported) Mv,Ca,Min/Iron Fum/FA/Vit K (Multi For Her Tablet) 18 MG IRON-600 MCG-80 MCG TABLET 1 TAB PO DAILY SUPPLEMENT (Reported) Potassium Gluconate (Potassium) 595 MG (99 MG) TABLET 1 TAB PO DAILY SUPPLEMENT (Reported) Pravastatin Sodium 40 MG TABLET 1 TAB PO DAILY CHOLESTEROL (Reported) Past History Travel History Traveled to [place] past 21 day No Medical History Neurological: NONE EENT: TORN ESOPHAGUS Cardiovascular: hypertension Respiratory: PARALYZED R DIAPHRAM Gastrointestinal: diverticulitis, GERD Hepatic: NONE Renal: KIDNEY CYST Musculoskeletal: fibromyalgia, ARTHRITIS Psychiatric: NONE Endocrine: NONE Blood Disorders: NONE Cancer(s): SKIN CANCER ON HANDS ?LESION ON SPLEEN HARDWARE ENGINEER/Reproductive: NONE History of MRSA: No History of VRE: No History of CDIFF: No Surgical History Surgical History: non-contributory Past Family/Social History Psychosocial History Services at Home: None Review of Systems Review of Systems Constitutional: Reports: fever. EENTM: Reports: no symptoms. Cardiovascular: Reports: no symptoms. Respiratory: Reports: cough, sputum production. GI: Reports: no symptoms. Genitourinary: Reports: no symptoms. Musculoskeletal: Reports: no symptoms. Skin: Reports: no symptoms. Neurological/Psychological: Reports: no symptoms. Hematologic/Endocrine: Reports: no symptoms. Exam & Diagnostic Data Last 24 Hrs of Vital Signs/I&O Vital Signs Date Time Temp Pulse Resp B/P B/P Pulse O2 O2 Flow FiO2 Mean Ox Delivery Rate 09/06 1917 100.7 89 18 180/92 96 Nasal 2.0L Cannula 09/06 1858 96 Nasal 2.0L Cannula 09/06 1714 87 18 174/84 94 Nasal 2.5L Cannula 09/06 1610 92 Nasal 2.0L Cannula 09/06 1458 99.5 88 22 188/90 98 Nasal 1.5L Cannula 09/06 1457 96 Nasal 2.0L Cannula Intake & Output 09/06 1600 09/06 0800 09/06 0000 Intake Total Output Total Balance Patient 163 lb Weight Weight Reported by Patient Measurement Method Physical Exam General Appearance Alert, Oriented X3, Cooperative Skin No Rashes Skin Temp/Moisture Exam: Warm/Dry Sepsis Skin Exam (color): Normal for Ethnicity HEENT Atraumatic, PERRLA, EOMI Neck Supple Cardiovascular Normal S1, Normal S2 Lungs B/L crackles in lungs Abdomen Soft, No Tenderness Neurological Normal Speech, Strength at 5/5 X4 Ext, Normal Tone, Sensation Intact Extremities B/L NON PITTING EDEMA Assessment/Plan Assessment: 67 YO F nonsmoker with PMH of HTN, HLD, DM, stage III polycystic kidney disease, GERD, osteoporosis, asthma, rheumatoid arthritis on methotrexate, fibromyalgia, hyperthyroidism on methimazole, squamous cell carcinoma of hand, esophageal dilation for stricture S/P esophageal perforation and repair (2011), 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 We will admit the patient on general medicine floor to treat for possible aspiration pneumonia. Acute hypoxic respiratory failure due to Aspiration pneumonia: -Supplemental oxygen to keep the oxygen saturation above 92%. -TRC nebulization as needed -Chest physiotherapy -Mucinex and Tessalon Perles for cough -Continue IV Unasyn -Aspiration precaution -Keep patient nothing by mouth for swelling level tomorrow -Gentle IV fluid hydration -Follow sputum and blood cultures -Urine for urine strep and legionella antigens -id consult -Consider pulmonology consult if her symptoms worsens History of hypertension: -Continue home medications History of GERD: -Continue home medications H/O Hyperthyroidism: -Continue methimazole History of hyperlipidemia: -Continue atorvastatin History of rheumatoid arthritis: -Hold the methotrexate for now History of chronic cough: -Continue Tessalon Perles. DVT prophylaxis: Mechanical and subcutaneous Lovenox CODE STATUS: Full code As Ranked By This Provider Problem List: 1. Aspiration pneumonia 2. Acute respiratory failure with hypoxia Core Measures/Misc (03/04) Acute Coronary Syndrome ACS Diagnosis: No Congestive Heart Failure Congestive Heart Failure Diagnosis No Cerebrovascular Accident CVA/TIA Diagnosis: No VTE (View Protocol) VTE Risk Factors Age>40 No Mechanical VTE Prophylaxis d/t N/A MechProphylax Ordered No VTE Pharm Prophylaxis d/t NA PharmProphylax ordered Sepsis (View protocol) Sepsis Present: No Margo Leslie 09/06/17 2342: Resident Review Statement Resident Statement: examined this patient, discussed with safety intern, agreed with safety intern Other Findings: Patient is 67-year-old female with past medical history significant for hypertension, dyslipidemia, osteopenia, asthma, rheumatoid arthritis on methotrexate, fibromyalgia, polycystic kidney disease, squamous cell carcinoma of hand, hyperthyroidism and history of esophagial perforation leading to hemiparalysis of diaphragm and esophageal dysmotility and GERD was brought in to emergency room when found to be significantly hypoxic after colonoscopy at GI suite today. Patient had recent endoscopy almost a week ago at [facility] and post endoscopy she was doing fine until today. She had chronic cough at baseline which is mostly dry. But after colonoscopy today she had productive cough with yellowish phlegm and also she became significantly hypoxic in 60s. She also feels very congested which is new for her. She usually coughs whenever she bends over to something. She denied any regurgitation of food or choking on food at baseline. She is scheduled for a esophagogram next week Her vital signs on admission were temperature 99.5 later on spiked 100.7, pulse 88, respiratory rate 22, blood pressure 188/90 and she was saturating 96% on 2 L nasal cannula. Labs were significant for WBC count 7.2 with 92.2% granulocytes, hemoglobin 11.4 , hematocrit 33.9, platelet count 301, d-dimer's were 6437, sodium 141, potassium 3.4, BUN 19, creatinine 1.3, negative troponin, CTA chest showed no evidence of pulmonary embolism but showed multifocal patchy infiltrate most noted in the left upper lung and left base greater than right base. EKG showed sinus tachycardia with no acute ST-T wave changes On examination Alert and oriented 3 Head atraumatic Neck supple, no JVD Chest showed bilateral rhonchi Heart S1, S2 , 2 x 6 systolic murmur Abdomen soft, nontender, no organomegaly Extremities shows bilateral 2+ edema No neurological deficit noted Assessment and plan 67-year-old female with past medical history significant for hypertension, hyperthyroidism, esophageal stricture and dysmotility, status post esophageal tear and anthony-diaphragm paralysis, rheumatoid arthritis came from GI suite after colonoscopy when found to be significantly hypoxic concerning for aspiration. Problem list 1. Bilateral pulmonary infiltrate most likely due to aspiration pneumonia given her history of esophageal dysmotility and chronic cough 2. Leukocytosis most likely due to pneumonia 3. History of hypertension 4. History of dyslipidemia 5. History of rheumatoid arthritis on methotrexate 6. History of asthma 7. History of hyperthyroidism 8. Hypokalemia most likely chronic Plan 1. We will admit her on general medical floor and we will monitor her WBC count , basic electrolyte panel and will replete electrolytes accordingly 2. We will start her on Unasyn for aspiration pneumonia 3. We will continue all her medications with sip of water and keeping her nothing by mouth and will request swallow evaluation in a.m. 4. We will request ID evaluation in a.m. 5. TRC and nebulization 6. We will request Tessalon Perles and Mucinex for cough 7. We'll arenas culture her 8. We will hold because regular rate and will continue all other medications 9. We will start gentle IV hydration Patient is full cor Pharmacological DVT prophylaxis We'll keep nothing by mouth Braden ROBERTSON, [facility] 09/07/17 0326: Attending MD Review Statement Attending Statement Attending MD Statement: examined this patient, discuss w/resident/PA/BABY FORMULA WORKER, agreed w/resident/PA/BABY FORMULA WORKER, reviewed images, amended to note Attending Assessment/Plan: 67 yo F with h/o HTN, RA on methotrexate, asthma, grave's disease, PCKD stage 3, GERD, fibromyalgia, recurrent esophageal strictures requiring dilatation, one of which was complicated by esophageal perforation (2011) resulting in paralyzed right hemidiaphragm and chronic cough. She follows with [facility] Dr. Nazario and Pulm Dr. Vee. She is being worked up for her esophageal issues and cough, recently had a motility test. One week ago, she had an outpatient EGD by Dr. Akers, noted to have 2 strictures but no dilatation done. She underwent routine colonoscopy at [place] by Dr. Daley. During the procedure, patient started to cough and was hypoxic to 60's. She was bagged and sats improved to 90's. Post procedure, she was placed on NRB, but she became increasingly congested coughing up yellow to brown tinged sputum with wheezing. Symptoms did not get better with nebs. Prior to the procedure patient had no respiratory complaints other than the baseline chronic dry cough. She was sent to ER from the GI Suite for evaluation. Patient currently reports feeling washed/ drained out, congested cough+. C/o nausea, but no vomiting. Denies sick contacts. Vitals: Tmax 100.7, sats 95% on 2L, BP 140/70. Exam: dry mucous membranes, ill appearing female. Lungs: reduced air entry on left side with scattered rhonchi. Labs: WBC 11.3, elevated D-dimer, K 3.4, BUN 19, creat 1.3 (baseline), trop neg. Flu swab negative. CTA chest: no PE, multifocal patchy infiltrate in left upper lung and left lower lung greater than right base. Nodules+. EKG: sinus tachycardia, PVC's, Qtc 495. Assessment and plan: 1. Acute hypoxic respiratory failure 2. Multilobar pneumonia concerning for aspiration pneumonia 3. Hypokalemia 4. H/o esophageal stricture s/p dilatation 5. H/o esophageal perforation c/b paralyzed right hemidiaphragm and chronic cough 6. H/o Asthma 7. CKD stage 3 stable - Admit to General medicine - TRC nebs - Blood and sputum cultures, urine legionella and strep Ag - IV Unasyn - NPO for now, advance diet as tolerated in AM - Swallow eval in AM - ID consult - Consider Pulm consult if symptoms do not improve - Add mucinex and tessalon pearles for cough - Gentle IV hydration - Resume methimazole, lisinopril, labetalol, HCTZ, montelukast and pravastatin - Hold methotrexate - Replete electrolytes DVT ppx Hep SC. Full code.
[2017-09-07 02:02] VITALS: BP 140/78
--- NOTE | 2017-09-07 03:27 | Admission Certification ---
Admission Certification Certification Statement - As attending physician, I certify that at the time of - admission, based on clinical presentation, severity of - symptoms, need for further diagnostic testing and - therapeutic interventions, and risk of adverse outcomes - without in-hospital treatment, in my clinical assessment, - this patient requires an acute hospital stay for a minimum - of two nights or longer. I have also considered psychsocial - factors such as support system, advanced age, financial - issues, cognitive issues, and failed out-patient treatments, - past re-admission history, safety of patient, and lack of - compliance as applicable. Specific rationale supporting this admission is: Acute hypoxic respiratory failure, Multilobar pneumonia, possible aspiration.
[2017-09-07 06:42] VITALS: BP 96/64
--- NOTE | 2017-09-07 07:19 | PN- Housestaff ---
Phyllis ROBERTSON,Eldon 09/07/17 0718: Subjective Follow-up For: Suspected aspiration pneumonia Acute hypoxic respiratory failure Subjective: Patient was seen and examined at bedside. She was in mild respiratory distress, having difficulty speaking in full sentences but not tripoding. She is complaining of a productive cough and a burning sensation in her mid chest. She becomes very short of breath with exertion. She denies any headache, lightheadedness, shortness of breath, nausea, vomiting, chest pain, palpitations. Review of Systems Constitutional: Reports: no symptoms. EENTM: Reports: no symptoms. Cardiovascular: Reports: no symptoms. Respiratory: Reports: see HPI, cough, short of breath, sputum production. Denies: wheezing. Gastrointestinal: Reports: no symptoms. Genitourinary: Reports: no symptoms. Musculoskeletal: Reports: no symptoms. Objective Last 24 Hrs of Vital Signs/I&O Vital Signs Date Time Temp Pulse Resp B/P B/P Pulse O2 O2 Flow FiO2 Mean Ox Delivery Rate 09/07 0642 98.2 69 20 96/64 99 Nasal 3.0L Cannula 09/07 0202 97.3 84 20 140/78 96 Nasal 3.0L Cannula 09/07 0125 97.3 84 20 140/78 09/07 0030 97.4 09/07 0030 94 Nasal 2.0L Cannula 09/06 2312 Nasal Cannula 09/06 2235 99.1 86 16 178/84 97 Nasal 2.0L Cannula 09/06 2030 100.7 09/06 1917 100.7 89 18 180/92 96 Nasal 2.0L Cannula 09/06 1858 96 Nasal 2.0L Cannula 09/06 1714 87 18 174/84 94 Nasal 2.5L Cannula 09/06 1610 92 Nasal 2.0L Cannula 09/06 1458 99.5 88 22 188/90 98 Nasal 1.5L Cannula 09/06 1457 96 Nasal 2.0L Cannula Intake & Output 09/07 0800 09/07 0000 09/06 1600 Intake Total 1000 Output Total Balance 1000 Intake, IV 1000 Patient 163 lb 163 lb Weight Weight Reported by Patient Reported by Patient Measurement Method Physical Exam General Appearance: Alert, Oriented X3, Cooperative, Mild Distress (MILD RESPIRATORY DISTRESS) Skin Temp/Moisture Exam: Warm/Dry Sepsis Skin Exam (color): Normal for Ethnicity Cardiovascular: Regular Rate, Normal S1, Normal S2 Lungs: DIMINISHED BREATH SOUNDS ON THE R SIDE, SCATTERED RHONCHI Abdomen: Normal Bowel Sounds, Soft, No Tenderness Neurological: Normal Speech, Normal Tone, Sensation Intact Extremities: No Clubbing, No Cyanosis, No Edema Current Medications: Current Medications Sig/Mikaela Start time Last Medication Dose Route Stop Time Status Admin Acetaminophen 0 .STK-MED ONE 09/06 2105 DC IV Acetaminophen 1,000 MG ONCE ONE 09/06 1945 DC 09/06 N/A 1 UNIT IV 09/06 195 2030 Albuterol Sulfate 2 PUF 4 TIMES/DAY PRN 09/06 2345 AC INH Albuterol Sulfate 3 ML ONCE ONE 09/06 1600 DC 09/06 INH 09/06 1601 1610 Ampicillin Sodium/ 1,500 MG Q6 09/06 2359 AC 09/07 Sulbactam Sodium IV 0614 Sodium Chloride 100 ML Ampicillin Sodium/ 0 .STK-MED ONE 09/06 1804 DC Sulbactam Sodium .ROUTE Ampicillin Sodium/ 1,500 MG ONCE ONE 09/06 1745 DC 09/06 Sulbactam Sodium IV 09/06 1814 1830 Sodium Chloride 100 ML Benzonatate 100 MG TID 09/06 2334 AC 09/07 PO 0116 Folic Acid 1 MG DAILY 09/07 1000 AC PO Guaifenesin 600 MG Q12 09/06 2338 AC 09/07 PO 0120 Guaifenesin 600 MG ONCE ONE 09/06 1600 DC 09/06 PO 09/06 1601 1629 Heparin Sodium 0 .STK-MED ONE 09/06 2234 DC (Porcine) .ROUTE Heparin Sodium 5,000 UNIT Q8 09/06 2200 AC 09/07 (Porcine) SC 0612 Hydrochlorothiazide 12.5 MG DAILY 09/07 1000 AC PO Labetalol HCl 200 MG BID 09/06 2335 AC 09/07 PO 0125 Lisinopril 10 MG DAILY 09/07 1000 AC PO Methimazole 5 MG SuMoWeFr@1000 09/07 1000 AC PO Montelukast Sodium 10 MG DAILY 09/07 1000 AC PO Ondansetron HCl 0 .STK-MED ONE 09/06 1614 DC .ROUTE Ondansetron HCl 4 MG ONCE ONE 09/06 1600 DC 09/06 IV 09/06 1601 1610 Potassium Chloride 10 MEQ Q1H 09/06 2145 DC 09/07 IV 09/06 2246 0124 Pravastatin Sodium 20 MG 1700 09/07 1700 AC PO Sodium Chloride 1,000 ML Q10H 09/06 2345 AC 09/07 IV 09/07 0944 0113 Sodium Chloride 500 ML BOLUS ONE 09/06 2029 DC 09/06 IV 09/06 Sodium Chloride 1,000 ML BOLUS ONE 09/06 1945 DC 09/06 IV 09/06 Last 24 Hrs of Lab/Alonso Results Last 24 Hrs of Labs/Mics: Laboratory Tests 09/06/17 1645: Anion Gap 13, Estimated GFR 41 L, BUN/Creatinine Ratio 14.6, Glucose 131 H, Calcium 9.7, Total Bilirubin 0.6, AST 17, ALT 25, Alkaline Phosphatase 77, Troponin I < 0.01, Total Protein 6.3, Albumin 3.6, Globulin 2.7, Albumin/ Globulin Ratio 1.3, D-Dimer High Sensitivty 6437 H, CBC w Diff NO MAN DIFF REQ, RBC 3.64 L, MCV 93.0, MCH 31.3 H, MCHC 33.6, RDW 14.3, MPV 6.9 L, Gran % 92.2 H, Lymphocytes % 5.0 L, Monocytes % 2.5, Eosinophils % 0.3, Basophils % 0, Absolute Granulocytes 10.4 H, Absolute Lymphocytes 0.6 L, Absolute Monocytes 0.3, Absolute Eosinophils 0, Absolute Basophils 0 Microbiology 09/07 0541 URINE ROUT: Legionella Antigen - ORD 09/07 05 URINE ROUT: Streptococcus pneumoniae Antigen (M - ORD 09/06 2230 NASOPHARYN: Influenza Virus A & B Rapid Smear - COMP 09/06 182 BLOOD: Blood Culture - RECD 09/06 181 BLOOD: Blood Culture - RECD 09/06 1550 LOWER RESP: Respiratory Culture - RES 09/06 1550 LOWER RESP: Gram Stain - RES Assessment/Plan Assessment: The patient is a 67-year-old female with a history significant for RA on methotrexate, asthma, Graves' disease, HTN, GERD, polycystic kidney disease stage III, fibromyalgia, esophageal strictures, esophageal perforation and phrenic nerve damage in 2011, who desaturated during an outpatient colonoscopy was hypoxic to the 60s. She was noted in the ED to have an elevated d-dimer CTA was done to rule out PE and multifocal patchy infiltrates were noted, no PE seen. 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 #Aspiration pneumonia with acute hypoxic respiratory failure Multifocal infiltrates seen on CT, patient was pancultured, sputum culture Gram stain showing gram-positive cocci, gram-positive rods, gram negative rods. Patient was started empirically on Unasyn. Urine Legionella and strep pneumoniae antigens were negative. Leukocytosis has resolved, patient spiked a low-grade fever 100.7 overnight -Continue IV Unasyn - Follow-up final cultures and sensitivities -TRC/nebs -ID consult was placed this morning, will follow up recommendations -Nothing by mouth pending formal swallow evaluation -Of note, patient has an outpatient MBS scheduled for next week -Cough suppression with Tessalon Perles and Mucinex #Hypokalemia, hypomagnesemia -Repleted intravenously -Continue to monitor and replete orally when patient has passed swallow evaluation #Chronic medical problems including Graves' disease, HTN, HLD, GERD, RA, PCKD -Continue home medications, hold methotrexate for now Diet: Nothing by mouth pending formal swallow evaluation DVT prophylaxis: Subcutaneous heparin,ALPS CODE STATUS: Full code Problem List: 1. Acute respiratory failure with hypoxia 2. Aspiration pneumonia 3. Hypokalemia 4. Hypomagnesemia Pain Ratin Pain Location: mild burning sensation of the mid chest Pain Goal: Remain pain free Pain Plan: pain pathway Tomorrow's Labs & Rationales: cbc, bep Maggy Shaw MD 09/07/17 1028: Attending MD Review Statement Attending Statement Attending MD Statement: examined this patient, discuss w/resident/PA/END FINDER FORMING DEPARTMENT, agreed w/resident/PA/END FINDER FORMING DEPARTMENT, reviewed EMR data (avail) Attending Assessment/Plan: 67F PMH HTN, RA on methotrexate, asthma, grave's disease, PCKD stage 3, GERD, fibromyalgia, recurrent esophageal strictures requiring dilatation, one of which was complicated by esophageal perforation (2011) resulting in paralyzed right hemidiaphragm and chronic cough, recent EGD showing 2 strictures with no obstruction, underwent screening colonoscopy one day prior to admission, and post-procedure developed hypoxia to 60's, worsening productive cough, and SOB. Coarse breath sounds bilaterally, decreased on the right, mildly SOB but able to speak in complete sentences, imaging shows bilateral upper lobe infiltrates, likely aspiration pneumonia. Afebrile, stable vitals, labs reviewed. 1. Bilateral upper lobe aspiration pneumonia 2. Acute hypoxemic respiratory failure 3. Esophageal strictures 4. Right diaphragm hemiparesis Plan - Continue on general medicine - Continue Unasyn - Sputum culture - Speech therapy evaluation - Elevate head of bed - Start PPI while inpatient (not taking at home due to osteopenia) - Continue home medications - DVT PPx
[2017-09-07 08:00] LABS: ABSOLUTE BASOPHIL COUNT 0 /CUMM (0.0-0.2); ABSOLUTE EOSINOPHIL COUNT 0.2 /CUMM (0.0-0.7); ABSOLUTE LYMPH COUNT 1.3 /CUMM (1.2-3.4); ABSOLUTE MONOCYTE COUNT 0.4 /CUMM (0.10-0.60); BASOPHIL % 0.2 % (0.0-2.0); EOSINOPHIL % 1.8 % (0-5); GRANULOCYTE % 78.5 % (42.2-75.2); MEAN CORPUSCULAR HGB 30.7 PG (27.0-31.0); MEAN CORPUSCULAR HGB CONC 32.7 G/DL (33.0-37.0); MEAN PLATELET VOLUME 7.4 FL (7.4-10.4); PLATELET COUNT 251 /CUMM (130-400); RBC DISTRIBUTION WIDTH 14.7 % (11.5-14.5); RED BLOOD CELL CT 2.93 /CUMM (4.20-5.40); WHITE BLOOD CELL COUNT 8.9 /CUMM (4.8-10.8)
[2017-09-07 08:34] LABS: HEMATOCRIT 27.5 % (37-47)
--- NOTE | 2017-09-07 13:46 | RADIOLOGY REPORT ---
EXAMINATION: XR MODIFIED BARIUM SWALLOW CLINICAL INFORMATION: Suspected aspiration pneumonia. History of esophageal stricture. COMPARISON: None TECHNIQUE: Modified barium swallow study was performed with speech therapist. FINDINGS: No evidence of any aspiration or penetration is noted at the time of the examination. FLUOROSCOPY TIME: 1 minute 26 seconds NUMBER OF IMAGES: 8 images IMPRESSION: No evidence of aspiration or penetration. Please refer to the speech therapist report for further full details.
[2017-09-07 14:34] VITALS: BP 138/80
--- NOTE | 2017-09-07 14:48 | Cons- Infect Disease ---
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 On admission she was febrile to 100.7, with an O2 sat of 95% on 2 L. Laboratory data revealed a white blood cell count of 11,000, BUN/creatinine 19 and 1.3, with normal liver enzymes, d-dimer 6437. CTA of the chest was negative for pulmonary embolism but revealed multifocal patchy infiltrates in the left upper lobe and both bases. She was begun on Unasyn. She has defervesced overnight and feels improved today. Allergies/Medications Allergies: Coded Allergies: Tetanus Vaccines and Toxoid (TETANUS VACCINES & TOXOID) (UNKNOWN 09/29/15) Uncoded Allergies: SEASONAL AND DUST (09/29/15) Home Med List: Albuterol Sulfate (Ventolin Hfa) 90 MCG HFA.AER.AD 2 PUF INH PRN ASTHMA ( Reported) Benzonatate 200 MG CAPSULE 1 CAP PO TIDPRN PRN COUGH (Reported) Folic Acid 1 MG TABLET 1 TAB PO DAILY SUPPLEMENT (Reported) Hydrochlorothiazide 12.5 MG CAPSULE 1 CAP PO DAILY WATER RETENTION (Reported) Labetalol HCl 200 MG TABLET 1 TAB PO BID HBP (Reported) Lisinopril 10 MG TABLET 1 TAB PO DAILY HEART (Reported) Methimazole 5 MG TABLET 1 TAB PO MONWEDFRISUN THYROID (Reported) Methotrexate 2.5 MG TABLET 3 TAB PO QTHURS RA (Reported) Montelukast Sodium 10 MG TABLET 1 TAB PO DAILY ALLERGIES/ASTHMA (Reported) Mv,Ca,Min/Iron Fum/FA/Vit K (Multi For Her Tablet) 18 MG IRON-600 MCG-80 MCG TABLET 1 TAB PO DAILY SUPPLEMENT (Reported) Potassium Gluconate (Potassium) 595 MG (99 MG) TABLET 1 TAB PO DAILY SUPPLEMENT (Reported) Pravastatin Sodium 40 MG TABLET 1 TAB PO DAILY CHOLESTEROL (Reported) Past History Travel History Traveled to [place] past 21 day No Medical History Blood Transfusion Hx: Yes Neurological: NONE EENT: TORN ESOPHAGUS Cardiovascular: hypertension Respiratory: asthma, PARALYZED R DIAPHRAM Gastrointestinal: diverticulitis, GERD, esophageal strictures Hepatic: LIVER CYST Renal: chronic kidney disease, polycystic kidney disease Musculoskeletal: fibromyalgia, ARTHRITIS Psychiatric: NONE Endocrine: hyperthyroidism Blood Disorders: NONE Cancer(s): SKIN CANCER ON HANDS ?LESION ON SPLEEN DEPUTY K 9/Reproductive: NONE History of MRSA: No History of VRE: No History of CDIFF: No Isolation History: Standard Influenza Vaccine: 03/27/17 Surgical History Surgical History: hysterectomy (with unilateral oophorectomy), laminectomy Psychosocial History Where Do You Live? Home Services at Home: None Smoking Status: Never Smoked Review of Systems Review of Systems All Other Systems: Reviewed and Negative Exam & Diagnostic Data Last 24 Hrs of Vital Signs/I&O Vital Signs Date Time Temp Pulse Resp B/P B/P Pulse O2 O2 Flow FiO2 Mean Ox Delivery Rate 09/07 1434 97.8 70 20 138/80 97 Nasal 2.0L Cannula 09/07 1038 73 160/78 09/07 1035 73 160/78 09/07 0800 99 Nasal 3.0L Cannula 09/07 0642 98.2 69 20 96/64 99 Nasal 3.0L Cannula 09/07 0202 97.3 84 20 140/78 96 Nasal 3.0L Cannula 09/07 0125 97.3 84 20 140/78 09/07 0030 97.4 09/07 0030 94 Nasal 2.0L Cannula 09/06 2312 Nasal Cannula 09/06 2235 99.1 86 16 178/84 97 Nasal 2.0L Cannula 09/06 2030 100.7 09/06 1917 100.7 89 18 180/92 96 Nasal 2.0L Cannula 09/06 1858 96 Nasal 2.0L Cannula 09/06 1714 87 18 174/84 94 Nasal 2.5L Cannula 09/06 1610 92 Nasal 2.0L Cannula 09/06 1458 99.5 88 22 188/90 98 Nasal 1.5L Cannula 09/06 1457 96 Nasal 2.0L Cannula Intake & Output 09/07 1600 09/07 0800 09/07 0000 Intake Total 800 1000 Output Total 550 Balance 250 1000 Intake, IV 800 1000 Intake, Oral 0 Output, Urine 550 Patient 163 lb Weight Weight Bed scale Measurement Method Physical Exam Other Physical Findings: MAXIMUM TEMPERATURE 100.7. She is awake and alert in no acute distress, with hoarseness. Skin reveals no rash. HEENT negative. Neck is supple with no adenopathy. Lungs bibasilar crackles. Heart regular rhythm with no murmur. Abdomen is soft, nontender with positive bowel sounds. Back no CVA tenderness. Extremities no cyanosis, clubbing or edema. Neuro is without focality. Last 24 Hours of Lab Results: Laboratory Tests 09/07 09/06 0715 2230 Chemistry Sodium (137 - 145 mmol/L) 141 Potassium (3.5 - 5.1 mmol/L) 3.2 L Chloride (98 - 107 mmol/L) 106 Carbon Dioxide (22 - 30 mmol/L) 25 Anion Gap (5 - 16) 10 BUN (7 - 17 mg/dL) 14 Creatinine (0.5 - 1.0 mg/dL) 1.3 H Estimated GFR (>60 ml/min) 41 L BUN/Creatinine Ratio (7 - 25 %) 10.8 Magnesium (1.6 - 2.3 mg/dL) 1.4 L Hematology CBC w Diff NO MAN DIFF REQ WBC (4.8 - 10.8 /CUMM) 8.9 RBC (4.20 - 5.40 /CUMM) 2.93 L Hgb (12.0 - 16.0 G/DL) 9.0 L Hct (37 - 47 %) 27.5 L MCV (81.0 - 99.0 FL) 94.0 MCH (27.0 - 31.0 PG) 30.7 MCHC (33.0 - 37.0 G/DL) 32.7 L RDW (11.5 - 14.5 %) 14.7 H Plt Count (130 - 400 /CUMM) 251 MPV (7.4 - 10.4 FL) 7.4 Gran % (42.2 - 75.2 %) 78.5 H Lymphocytes % (20.5 - 51.1 %) 14.6 L Monocytes % (1.7 - 9.3 %) 4.9 Eosinophils % (0 - 5 %) 1.8 Basophils % (0.0 - 2.0 %) 0.2 Absolute Granulocytes (1.4 - 6.5 /CUMM) 7.0 H Absolute Lymphocytes (1.2 - 3.4 /CUMM) 1.3 Absolute Monocytes (0.10 - 0.60 /CUMM) 0.4 Absolute Eosinophils (0.0 - 0.7 /CUMM) 0.2 Absolute Basophils (0.0 - 0.2 /CUMM) 0 Serology Virus Culture Pending 09/06 1645 Chemistry Sodium (137 - 145 mmol/L) 141 Potassium (3.5 - 5.1 mmol/L) 3.4 L Chloride (98 - 107 mmol/L) 101 Carbon Dioxide (22 - 30 mmol/L) 27 Anion Gap (5 - 16) 13 BUN (7 - 17 mg/dL) 19 H Creatinine (0.5 - 1.0 mg/dL) 1.3 H Estimated GFR (>60 ml/min) 41 L BUN/Creatinine Ratio (7 - 25 %) 14.6 Glucose (65 - 99 mg/dL) 131 H Calcium (8.4 - 10.2 mg/dL) 9.7 Total Bilirubin (0.2 - 1.3 mg/dL) 0.6 AST (14 - 36 U/L) 17 ALT (9 - 52 U/L) 25 Alkaline Phosphatase (<127 U/L) 77 Troponin I (< 0.11 ng/ml) < 0.01 Total Protein (6.3 - 8.2 g/dL) 6.3 Albumin (3.5 - 5.0 g/dL) 3.6 Globulin (1.9 - 4.2 gm/dL) 2.7 Albumin/Globulin Ratio (1.1 - 2.2 %) 1.3 Coagulation D-Dimer High Sensitivty (0 - 243 ng/ml) 6437 H Hematology CBC w Diff NO MAN DIFF REQ WBC (4.8 - 10.8 /CUMM) 11.3 H RBC (4.20 - 5.40 /CUMM) 3.64 L Hgb (12.0 - 16.0 G/DL) 11.4 L Hct (37 - 47 %) 33.9 L MCV (81.0 - 99.0 FL) 93.0 MCH (27.0 - 31.0 PG) 31.3 H MCHC (33.0 - 37.0 G/DL) 33.6 RDW (11.5 - 14.5 %) 14.3 Plt Count (130 - 400 /CUMM) 301 MPV (7.4 - 10.4 FL) 6.9 L Gran % (42.2 - 75.2 %) 92.2 H Lymphocytes % (20.5 - 51.1 %) 5.0 L Monocytes % (1.7 - 9.3 %) 2.5 Eosinophils % (0 - 5 %) 0.3 Basophils % (0.0 - 2.0 %) 0 Absolute Granulocytes (1.4 - 6.5 /CUMM) 10.4 H Absolute Lymphocytes (1.2 - 3.4 /CUMM) 0.6 L Absolute Monocytes (0.10 - 0.60 /CUMM) 0.3 Absolute Eosinophils (0.0 - 0.7 /CUMM) 0 Absolute Basophils (0.0 - 0.2 /CUMM) 0 Last 24 Hours of Alonso Results: Blood cultures 2 September 06 negative Sputum culture September 06 no growth, with gram stain revealing many white blood cells, many gram-positive cocci, many gram-negative rods and moderate gram- negative cocci Rapid flu swab September 06 negative Urine strep pneumo antigen and Legionella antigen September 07 negative Diagnostic Data Recent Imaging Findings: CTA of the chest was negative for pulmonary embolism but revealed multifocal patchy infiltrates in the left upper lobe and both bases. 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 Her presentation is consistent with aspiration pneumonia following the colonoscopy. She is clearly at risk for this given her history of GERD, esophageal strictures and paralyzed right hemidiaphragm. Her sputum gram stain suggests infection with mouth organisms, including anaerobes, and the Unasyn should provide adequate coverage for this. She appears to have already improved and should be able to complete a 5 day course of treatment with oral antibiotics if she continues to improve. Suggestion: 1. Follow-up final sputum culture 2. Further management of her esophageal strictures per GI 3. Continue Unasyn with eventual change to Augmentin 875 mg po every 12 hours if continues to improve (and based on sputum culture) to complete a 5 day course of treatment Consult Acknowledgment - Thank you for your consult request.
[2017-09-07 22:15] VITALS: BP 142/80
[2017-09-08 06:20] VITALS: BP 150/88
--- NOTE | 2017-09-08 08:28 | PN- Housestaff ---
Ruby Olivares 09/08/17 0827: Subjective Follow-up For: aspiration pneumonia Acute hypoxic respiratory failure Subjective: Patient reports pain with deep inspiration and L lateral MSK pain Review of Systems Constitutional: Reports: see HPI. Objective Last 24 Hrs of Vital Signs/I&O Vital Signs Date Time Temp Pulse Resp B/P B/P Pulse O2 O2 Flow FiO2 Mean Ox Delivery Rate 09/08 06 98.3 75 20 150/88 95 Nasal Cannula 09/08 0000 96 Nasal 2.0L Cannula 09/07 2215 98.4 82 20 142/80 98 Nasal 2.0L Cannula 09/07 2059 82 142/80 09/07 1947 95 Nasal 2.0L Cannula 09/07 1600 97 Nasal 2.0L Cannula 09/07 1539 Nasal 2.0L Cannula 09/07 1434 97.8 70 20 138/80 97 Nasal 2.0L Cannula 09/07 1038 73 160/78 09/07 1035 73 160/78 Intake & Output 09/08 1600 09/08 0800 09/08 0000 Intake Total 480 400 Output Total Balance 480 400 Intake, IV 100 Intake, Oral 480 300 Number 2 Bowel Movements Patient 163 lb 169 lb Weight Weight Bed scale Measurement Method Physical Exam General Appearance: Alert, Oriented X3, Cooperative, No Acute Distress Cardiovascular: Regular Rate, Normal S1, Normal S2 Lungs: Decreased BLL breath sounds Abdomen: Normal Bowel Sounds, Soft, No Tenderness Current Medications: Current Medications Sig/Mikaela Start time Last Medication Dose Route Stop Time Status Admin Albuterol Sulfate 3 ML BID 09/07 1134 AC 09/08 INH 0928 Albuterol Sulfate 2 PUF 4 TIMES/DAY PRN 09/06 2345 AC INH Ampicillin Sodium/ 1,500 MG Q6 09/069 AC 09/08 Sulbactam Sodium IV 0546 Sodium Chloride 100 ML Benzonatate 100 MG TID 09/06 2334 AC 09/07 PO 2058 Folic Acid 1 MG DAILY 09/07 1000 AC 09/07 PO 103 Guaifenesin 600 MG Q12 09/06 2337 AC 09/07 PO 2058 Heparin Sodium 5,000 UNIT Q8 09/06 2200 AC 09/08 (Porcine) SC 0546 Hydrochlorothiazide 12.5 MG DAILY 09/07 1000 AC 09/07 PO 103 Labetalol HCl 200 MG BID 09/06 2334 AC 09/07 PO 2059 Lisinopril 10 MG DAILY 09/07 1000 AC 09/07 PO 1035 Magnesium Sulfate 1 GM ONCE ONE 09/07 0900 DC 09/07 Dextrose/Water 100 ML IV 09/07 1259 1154 Methimazole 5 MG SuMoWeFr@1000 09/07 1000 AC 09/07 PO 1037 Montelukast Sodium 10 MG DAILY 09/07 1000 AC 09/07 PO 1036 Patient Medication 1 ED ONE ONE 09/07 1500 DC Teaching ED 09/07 1501 Potassium Chloride 10 MEQ Q1H 09/07 0830 DC 09/07 IV 09/07 0931 1038 Pravastatin Sodium 20 MG 1700 09/07 1700 AC 09/07 PO 1602 Sodium Chloride 1,000 ML Q10H 09/06 2345 DC 09/07 IV 09/07 0944 0113 Last 24 Hrs of Lab/Alonso Results Last 24 Hrs of Labs/Mics: Laboratory Tests 09/08/17 0705: Sodium Pending, Potassium Pending, Chloride Pending, Carbon Dioxide Pending, Anion Gap Pending, BUN Pending, Creatinine Pending, BUN/Creatinine Ratio Pending , Phosphorus Pending, Magnesium Pending, CBC w Diff NO MAN DIFF REQ, RBC 2.74 L , MCV 93.7, MCH 31.3 H, MCHC 33.5, RDW 14.4, MPV 7.7, Gran % 61.6, Lymphocytes % 21.8, Monocytes % 4.7, Eosinophils % 11.2 H, Basophils % 0.7, Absolute Granulocytes 3.7, Absolute Lymphocytes 1.3, Absolute Monocytes 0.3, Absolute Eosinophils 0.7, Absolute Basophils 0 Assessment/Plan Assessment: Mr. Nava is a 67-year-old female with a history significant for RA on methotrexate, asthma, Graves' disease, HTN, GERD, polycystic kidney disease stage III, fibromyalgia, esophageal strictures, esophageal perforation and phrenic nerve damage in 2011, who desaturated during an outpatient colonoscopy was hypoxic to the 60s. She was noted in the ED to have an elevated d-dimer CTA was done to rule out PE and multifocal patchy infiltrates were noted, no PE seen. 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 Problem list: aspiration pneumonia Acute hypoxic respiratory failure Hypokalemia hypomagnesemia Plan: TRC/nebs Continue IV Unasyn Start oral Acetaminophen Start Mucosyl 2ml BID for 72 hours Start Prednisone 40 mg x 5 days Monitor and replete potassium and magnesium PRN Follow-up final cultures and sensitivities hold methotrexate Currently has an outpatient MBS scheduled for next week ID recommendations appreciated Diet: Nothing by mouth pending formal swallow evaluation DVT prophylaxis: Subcutaneous heparin,ALPS CODE STATUS: Full code Problem List: 1. Aspiration pneumonia Pain Ratin Pain Location: NA Pain Goal: Remain pain free Pain Plan: NA Tomorrow's Labs & Rationales: BEP for renal, K+, Mg+ CBC for anemia Primo Sanchez MD 09/08/17 1245: Attending MD Review Statement Attending Statement Attending MD Statement: examined this patient, discuss w/resident/PA/AUTOMATION AND CONTROLS SUPERVISOR, agreed w/resident/PA/AUTOMATION AND CONTROLS SUPERVISOR, discussed with family, reviewed EMR data (avail), discussed with nursing, discussed with case mgmt, reviewed images, amended to note Attending Assessment/Plan: Primo Bloom M.D. have examined this patient, reviewed available EMR data, personally reviewed images, discussed with resident/PA/AUTOMATION AND CONTROLS SUPERVISOR, discussed management plan with housestaff and nursing staff, discussed managment plan all of healthcare providers, discussed management plan with patient and/or family, agreed with resident/PA/AUTOMATION AND CONTROLS SUPERVISOR. The past history and parts of the chart have been autopopulated. Impression 67-year-old woman with a history of asthma rheumatoid arthritis on methotrexate history of esophageal strictures and history of perforation. Paralyzed right hemidiaphragm. Here with aspiration pneumonia and cough. Plan -TRC/nebs -Add Mucomyst twice a day nebulized for 72 hours -Add prednisone 40 mg 5 days total -Follow up ID recommendations DVT prophylaxis at all times
[2017-09-08 08:55] LABS: ABSOLUTE BASOPHIL COUNT 0 /CUMM (0.0-0.2); ABSOLUTE EOSINOPHIL COUNT 0.7 /CUMM (0.0-0.7); ABSOLUTE GRANULOCYTE CT 3.7 /CUMM (1.4-6.5); ABSOLUTE LYMPH COUNT 1.3 /CUMM (1.2-3.4); ABSOLUTE MONOCYTE COUNT 0.3 /CUMM (0.10-0.60); BASOPHIL % 0.7 % (0.0-2.0); EOSINOPHIL % 11.2 % (0-5); GRANULOCYTE % 61.6 % (42.2-75.2); HEMATOCRIT 25.6 % (37-47); MEAN CORPUSCULAR HGB 31.3 PG (27.0-31.0); MEAN CORPUSCULAR HGB CONC 33.5 G/DL (33.0-37.0); MEAN CORPUSCULAR VOLUME 93.7 FL (81.0-99.0); MEAN PLATELET VOLUME 7.7 FL (7.4-10.4); PLATELET COUNT 223 /CUMM (130-400); RBC DISTRIBUTION WIDTH 14.4 % (11.5-14.5); RED BLOOD CELL CT 2.74 /CUMM (4.20-5.40)
[2017-09-08 14:54] VITALS: BP 135/80
[2017-09-08 21:30] VITALS: BP 206/90
[2017-09-08 22:54] VITALS: BP 182/90
[2017-09-09 00:07] VITALS: BP 178/96
[2017-09-09 06:20] VITALS: BP 194/102
--- NOTE | 2017-09-09 08:06 | PN- Housestaff ---
Ruby Olivares 09/09/17 0806: Subjective Follow-up For: aspiration pneumonia Acute hypoxic respiratory failure Subjective: Patient reports cough with yellowish sputum production. She reports her L sided MSK pain has improved since yesterday. Denies SOB, palpitations, nausea, vomiting Review of Systems Constitutional: Reports: see HPI. Objective Last 24 Hrs of Vital Signs/I&O Vital Signs Date Time Temp Pulse Resp B/P B/P Pulse O2 O2 Flow FiO2 Mean Ox Delivery Rate 09/09 0712 70 20 194/102 09/09 0620 98.3 70 18 194/102 96 Room Air 09/09 0007 67 178/96 09/09 0000 96 Room Air 09/08 2256 98.0 09/08 2254 58 182/90 09/08 2130 98.0 70 20 206 96 Room Air 09/08 2117 70 206/90 09/08 2025 98.0 09/08 1850 95 Room Air 09/08 1600 Room Air 09/08 1454 99.0 73 18 135/80 95 09/08 1039 76 160/82 09/08 1037 76 160/82 09/08 0928 98 Room Air Intake & Output 09/09 1600 09/09 0800 09/09 0000 Intake Total 600 480 Output Total Balance 600 480 Intake, IV 200 Intake, Oral 400 480 Patient 168 lb Weight Weight Bed scale Measurement Method Physical Exam General Appearance: Alert, Oriented X3, Cooperative, No Acute Distress Cardiovascular: Regular Rate, Normal S1, Normal S2 Lungs: Decreased breath sounds on R side Abdomen: Normal Bowel Sounds, Soft, No Tenderness Current Medications: Current Medications Sig/Mikaela Start time Last Medication Dose Route Stop Time Status Admin Acetaminophen 500 MG Q6P PRN 09/08 1100 AC PO Acetylcysteine 2 ML BID 09/08 1117 AC 09/08 INH 1850 Albuterol Sulfate 3 ML BID 09/07 1134 AC 09/08 INH 1850 Albuterol Sulfate 2 PUF 4 TIMES/DAY PRN 09/06 2345 AC INH Alprazolam 0.25 MG ONCE ONE 09/08 2345 DC 09/09 PO 09/08 2345 0029 Ampicillin Sodium/ 1,500 MG Q6 09/06 2359 AC 09/09 Sulbactam Sodium IV 0531 Sodium Chloride 100 ML Benzonatate 100 MG TID 09/06 2334 AC 09/08 PO 2117 Folic Acid 1 MG DAILY 09/07 1000 AC 09/08 PO 1036 Guaifenesin 600 MG Q12 09/06 2338 AC 09/08 PO 2117 Heparin Sodium 5,000 UNIT Q8 09/06 2200 AC 09/09 (Porcine) SC 0532 Hydrochlorothiazide 12.5 MG DAILY 09/07 1000 AC 09/08 PO 1037 Labetalol HCl 200 MG BID 09/06 2335 AC 09/08 PO 2117 Lisinopril 10 MG DAILY 09/07 1000 AC 09/09 PO 0712 Methimazole 5 MG SuMoWeFr@1000 09/07 1000 AC 09/07 PO 1037 Montelukast Sodium 10 MG DAILY 09/07 1000 AC 09/08 PO 1038 Pravastatin Sodium 20 MG 1700 09/07 1700 AC 09/08 PO 1601 Prednisone 40 MG DAILY 09/08 1115 AC 09/08 PO 09/12 1001 1241 Last 24 Hrs of Lab/Alonso Results Last 24 Hrs of Labs/Mics: Laboratory Tests 09/09/17 0720: Sodium Pending, Potassium Pending, Chloride Pending, Carbon Dioxide Pending, Anion Gap Pending, BUN Pending, Creatinine Pending, BUN/Creatinine Ratio Pending , CBC w Diff Pending, WBC Pending, RBC Pending, Hgb Pending, Hct Pending, MCV Pending, MCH Pending, MCHC Pending, RDW Pending, Plt Count Pending, MPV Pending Assessment/Plan Assessment: Mr. Nava is a 67-year-old female with a history significant for RA on methotrexate, asthma, Graves' disease, HTN, GERD, polycystic kidney disease stage III, fibromyalgia, esophageal strictures, esophageal perforation and phrenic nerve damage in 2011, who desaturated during an outpatient colonoscopy was hypoxic to the 60s. She was noted in the ED to have an elevated d-dimer CTA was done to rule out PE and multifocal patchy infiltrates were noted, no PE seen. 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 Problem list: aspiration pneumonia Acute hypoxic respiratory failure Hypokalemia hypomagnesemia Plan: TRC/nebs Continue IV Unasyn continue oral Acetaminophen continue Mucosyl 2ml BID for 72 hours continue Prednisone 40 mg x 5 days Monitor and replete potassium and magnesium PRN Follow-up final cultures and sensitivities hold methotrexate Currently has an outpatient MBS scheduled for next week ID recommendations appreciated Diet: Nothing by mouth pending formal swallow evaluation DVT prophylaxis: Subcutaneous heparin,ALPS CODE STATUS: Full code Problem List: 1. Acute respiratory failure with hypoxia 2. Aspiration pneumonia Pain Ratin Pain Location: NA Pain Goal: Remain pain free Pain Plan: NA Tomorrow's Labs & Rationales: CBC, BEP Primo Sanchez MD 09/09/17 0931: Attending MD Review Statement Attending Statement Attending MD Statement: examined this patient, discuss w/resident/PA/SUPERVISOR MOLD YARD, agreed w/resident/PA/SUPERVISOR MOLD YARD, discussed with family, reviewed EMR data (avail), discussed with nursing, discussed with case mgmt, reviewed images, amended to note Attending Assessment/Plan: Primo Bloom M.D. have examined this patient, reviewed available EMR data, personally reviewed images, discussed with resident/PA/SUPERVISOR MOLD YARD, discussed management plan with housestaff and nursing staff, discussed managment plan all of healthcare providers, discussed management plan with patient and/or family, agreed with resident/PA/SUPERVISOR MOLD YARD. The past history and parts of the chart have been autopopulated. Impression 67-year-old woman with a history of asthma rheumatoid arthritis on methotrexate history of esophageal strictures and history of perforation. Paralyzed right hemidiaphragm. Here with aspiration pneumonia and cough. Plan -TRC/nebs -Mucomyst twice a day nebulized for 72 hours total -prednisone 40 mg 5 days total -Follow up ID recommendations DVT prophylaxis at all times
[2017-09-09 08:17] LABS: ABSOLUTE BASOPHIL COUNT 0 /CUMM (0.0-0.2); ABSOLUTE EOSINOPHIL COUNT 0 /CUMM (0.0-0.7); ABSOLUTE GRANULOCYTE CT 3.8 /CUMM (1.4-6.5); ABSOLUTE MONOCYTE COUNT 0.4 /CUMM (0.10-0.60); BASOPHIL % 0.4 % (0.0-2.0); EOSINOPHIL % 0.1 % (0-5); HEMATOCRIT 29.8 % (37-47); MEAN CORPUSCULAR HGB 31.7 PG (27.0-31.0); MEAN CORPUSCULAR HGB CONC 33.7 G/DL (33.0-37.0); MEAN CORPUSCULAR VOLUME 94.2 FL (81.0-99.0); MEAN PLATELET VOLUME 7.6 FL (7.4-10.4); PLATELET COUNT 269 /CUMM (130-400); RBC DISTRIBUTION WIDTH 14.3 % (11.5-14.5); RED BLOOD CELL CT 3.16 /CUMM (4.20-5.40); WHITE BLOOD CELL COUNT 5.2 /CUMM (4.8-10.8)
[2017-09-09 08:31] VITALS: BP 190/90
--- NOTE | 2017-09-09 09:23 | PN- Infect Dx ---
Subjective Subjective: Afebrile on steroids. She continues to complain of a productive cough and chest discomfort with exertion Objective Last 24 Hrs of Vital Signs/I&O Vital Signs Date Time Temp Pulse Resp B/P B/P Pulse O2 O2 Flow FiO2 Mean Ox Delivery Rate 09/09 0831 190/90 09/09 0712 70 20 194/102 09/09 0620 98.3 70 18 194/102 96 Room Air 09/09 0007 67 178/96 09/09 0000 96 Room Air 09/08 2256 98.0 09/08 2254 58 182/90 09/08 2130 98.0 70 20 206/90 96 Room Air 09/08 2117 70 206/90 09/08 2025 98.0 09/08 1850 95 Room Air 09/08 1600 Room Air 09/08 1454 99.0 73 18 135/80 95 09/08 1039 76 160/82 09/08 1037 76 160/82 09/08 0928 98 Room Air Intake & Output 09/09 1600 09/09 0800 09/09 0000 Intake Total 600 480 Output Total Balance 600 480 Intake, IV 200 Intake, Oral 400 480 Patient 168 lb Weight Weight Bed scale Measurement Method Physical Exam Other Physical Findings: She appears comfortable in no acute distress Lungs bibasilar crackles Heart regular rhythm with no murmur Extremities no cyanosis, clubbing or edema Results Last 24 Hours of Lab Results: Laboratory Tests 09/10 719 Chemistry Sodium (137 - 145 mmol/L) 142 Potassium (3.5 - 5.1 mmol/L) 3.4 L Chloride (98 - 107 mmol/L) 103 Carbon Dioxide (22 - 30 mmol/L) 28 Anion Gap (5 - 16) 11 BUN (7 - 17 mg/dL) 16 Creatinine (0.5 - 1.0 mg/dL) 1.1 H Estimated GFR (>60 ml/min) 49 L BUN/Creatinine Ratio (7 - 25 %) 14.5 Hematology CBC w Diff NO MAN DIFF REQ WBC (4.8 - 10.8 /CUMM) 5.2 RBC (4.20 - 5.40 /CUMM) 3.16 L Hgb (12.0 - 16.0 G/DL) 10.0 L Hct (37 - 47 %) 29.8 L MCV (81.0 - 99.0 FL) 94.2 MCH (27.0 - 31.0 PG) 31.7 H MCHC (33.0 - 37.0 G/DL) 33.7 RDW (11.5 - 14.5 %) 14.3 Plt Count (130 - 400 /CUMM) 269 MPV (7.4 - 10.4 FL) 7.6 Gran % (42.2 - 75.2 %) 73.0 Lymphocytes % (20.5 - 51.1 %) 18.7 L Monocytes % (1.7 - 9.3 %) 7.8 Eosinophils % (0 - 5 %) 0.1 Basophils % (0.0 - 2.0 %) 0.4 Absolute Granulocytes (1.4 - 6.5 /CUMM) 3.8 Absolute Lymphocytes (1.2 - 3.4 /CUMM) 1.0 L Absolute Monocytes (0.10 - 0.60 /CUMM) 0.4 Absolute Eosinophils (0.0 - 0.7 /CUMM) 0 Absolute Basophils (0.0 - 0.2 /CUMM) 0 Last 24 Hours of Alonso Results: Sputum culture September 06 negative Blood cultures 2 September 06 negative Assessment/Plan ID Impression: Improved, with temperatures normal (on steroids) and white blood cell count also normal, on Unasyn Day 3 of treatment for presumed aspiration pneumonia following a colonoscopy. Her sputum culture is negative and, with her gram stain revealing multiple organisms, suspect an anaerobic process. Suggestion: 1. Further management with regard to her esophageal strictures per GI (as outpatient) 2. Discontinue Unasyn and begin Augmentin 875 mg po every 12 hours for 2 more days
[2017-09-09 15:07] VITALS: BP 176/88
[2017-09-09 18:00] VITALS: BP 160/90
[2017-09-09 22:10] VITALS: BP 180/90
[2017-09-10 00:13] VITALS: BP 176/84
[2017-09-10 06:20] VITALS: BP 180/98
--- NOTE | 2017-09-10 07:13 | PN- Housestaff ---
Phyllis ROBERTSON,Eldon 09/10/17 0713: Subjective Follow-up For: Aspiration pneumonia Hypertension Subjective: Patient was seen and examined at bedside. She is resting comfortably. She had no acute events overnight. Her blood pressure was uncontrolled over the weekend , however the patient was asymptomatic although feels a bit anxious. She has had issues with BP control in the past with numerous dosage adjustments. Her cough is back to baseline, no longer productive. She has been afebrile and reports that she feels back to her usual state of health. Review of Systems Constitutional: Reports: no symptoms. EENTM: Reports: no symptoms. Cardiovascular: Reports: no symptoms. Respiratory: Reports: cough. Denies: short of breath, sputum production. Gastrointestinal: Reports: no symptoms. Genitourinary: Reports: no symptoms. Musculoskeletal: Reports: no symptoms. Skin: Reports: no symptoms. Objective Last 24 Hrs of Vital Signs/I&O Vital Signs Date Time Temp Pulse Resp B/P B/P Pulse O2 O2 Flow FiO2 Mean Ox Delivery Rate 09/10 0638 180/98 09/10 0620 97.9 67 18 180/98 96 Room Air 09/10 0013 60 176/84 09/09 2210 98.1 71 20 180/90 95 09/09 2149 71 180/90 09/09 1850 95 Room Air 09/09 1800 81 160/90 09/09 1614 72 180/90 09/09 1600 Room Air 09/09 1507 98.1 71 20 176/88 94 09/09 1110 72 152/74 09/09 0929 94 Room Air Room Air 09/09 0831 190/90 Intake & Output 09/10 0800 09/10 0000 09/09 1600 Intake Total 120 480 720 Output Total Balance 120 480 720 Intake, Oral 120 480 720 Patient 168 lb Weight Weight Bed scale Measurement Method Physical Exam General Appearance: Alert, Oriented X3, Cooperative, No Acute Distress Cardiovascular: Regular Rate, Normal S1, Normal S2 Lungs: diminished breath sounds of the R lung posadas, scant rhonchi Abdomen: Normal Bowel Sounds, Soft, No Tenderness Extremities: No Clubbing, No Cyanosis, No Edema Current Medications: Current Medications Sig/Mikaela Start time Last Medication Dose Route Stop Time Status Admin Acetaminophen 500 MG Q6P PRN 09/08 1100 AC PO Acetylcysteine 2 ML BID 09/08 1117 AC 09/09 INH 1850 Albuterol Sulfate 3 ML BID 09/07 1134 AC 09/09 INH 1850 Albuterol Sulfate 2 PUF 4 TIMES/DAY PRN 09/06 2345 AC INH Alprazolam 0.25 MG ONCE ONE 09/09 2030 DC 09/09 PO 09/09 203 2149 Amoxicillin/ 875 MG Q12 09/09 1055 DC 09/09 Clavulanate Potassium PO 09/091 2149 Ampicillin Sodium/ 1,500 MG Q6 09/06 2359 DC 09/09 Sulbactam Sodium IV 0531 Sodium Chloride 100 ML Benzonatate 100 MG TID 09/06 2334 AC 09/09 PO 2149 Folic Acid 1 MG DAILY 09/07 1000 AC 09/09 PO 1108 Guaifenesin 600 MG Q12 09/06 2338 AC 09/09 PO 2149 Heparin Sodium 5,000 UNIT Q8 09/06 2199 AC 09/10 (Porcine) SC 0635 Hydralazine HCl 25 MG ONCE ONE 09/09 1500 DC 09/09 PO 09/09 1501 1614 Hydrochlorothiazide 12.5 MG DAILY 09/07 1000 AC 09/09 PO 0841 Labetalol HCl 200 MG BID 09/06 2335 AC 09/09 PO 2149 Lisinopril 10 MG DAILY 09/07 1000 AC 09/10 PO 0638 Magnesium Oxide 400 MG ONE ONE 09/09 1045 DC 09/09 PO 09/09 1046 1209 Methimazole 5 MG SuMoWeFr@1000 09/07 1000 AC 09/09 PO 1109 Montelukast Sodium 10 MG DAILY 09/07 1000 AC 09/09 PO 1109 Potassium Chloride 40 MEQ ONCE ONE 09/09 1045 DC 09/09 PO 09/09 1046 1209 Pravastatin Sodium 20 MG 1700 09/07 1700 AC 09/09 PO 1613 Prednisone 40 MG DAILY 09/08 1115 AC 09/09 PO 09/12 1001 1109 Last 24 Hrs of Lab/Alonso Results Last 24 Hrs of Labs/Mics: Laboratory Tests 09/09/17 0720: Anion Gap 11, Estimated GFR 49 L, BUN/Creatinine Ratio 14.5, CBC w Diff NO MAN DIFF REQ, RBC 3.16 L, MCV 94.2, MCH 31.7 H, MCHC 33.7, RDW 14.3, MPV 7.6, Gran % 73.0, Lymphocytes % 18.7 L, Monocytes % 7.8, Eosinophils % 0.1, Basophils % 0.4, Absolute Granulocytes 3.8, Absolute Lymphocytes 1.0 L, Absolute Monocytes 0.4, Absolute Eosinophils 0, Absolute Basophils 0 Assessment/Plan Assessment: The patient is a 67-year-old female with a history significant for RA on methotrexate, asthma, Graves' disease, HTN, GERD, polycystic kidney disease stage III, fibromyalgia, esophageal strictures, esophageal perforation and phrenic nerve damage in 2011, who desaturated during an outpatient colonoscopy was hypoxic to the 60s. She was noted in the ED to have an elevated d-dimer CTA was done to rule out PE and multifocal patchy infiltrates were noted, no PE seen. 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 #Aspiration pneumonia with acute hypoxic respiratory failure Patient is clinically improving, she has been afebrile on prednisone and her cough is returned to her baseline dry cough with no sputum production. -Continue Augmentin, day 5 of 5 day antibiotic course -TRC/nebs -Follow-up final cultures and sensitivities, currently no growth -Passed MBS with no signs of aspiration -Cough suppression with Tessalon Perles and Mucinex #Hypertension Patient had hypertensive urgency for a significant portion of the weekend, BP came down with morning dose of lisinopril given early. -Continue home antihypertensive regimen with lisinopril, labetalol, hydrochlorothiazide -If BP comes to an acceptable level by this afternoon, will discharge home with close follow-up with PCP #Hypokalemia, hypomagnesemia - continue to monitor BEP #Chronic medical problems including Graves' disease, HTN, HLD, GERD, RA, PCKD -Continue home medications Diet: Heart healthy diet DVT prophylaxis: Subcutaneous heparin,ALPS CODE STATUS: Full code Problem List: 1. Aspiration pneumonia Pain Ratin Pain Location: none Pain Goal: Remain pain free Pain Plan: pain pathway Tomorrow's Labs & Rationales: none Zurdo Shaw MD 09/10/17 1139: Attending Review Statement Attending Statement Attending MD Statement: examined this patient, discuss w/resident/PA/DAIRY C[employer]LE FARM WORKER, agreed w/resident/PA/DAIRY CATTLE FARM WORKER, reviewed EMR data (avail) Attending Assessment/Plan: 67F PMH HTN, RA on methotrexate, asthma, grave's disease, PCKD stage 3, GERD, fibromyalgia, recurrent esophageal strictures requiring dilatation, one of which was complicated by esophageal perforation (2011) resulting in paralyzed right hemidiaphragm and chronic cough, recent EGD showing 2 strictures with no obstruction, underwent screening colonoscopy one day prior to admission, and post-procedure developed hypoxia to 60's, worsening productive cough, and SOB. Coarse breath sounds bilaterally, decreased on the right, mildly SOB but able to speak in complete sentences, imaging shows bilateral upper lobe infiltrates, likely aspiration pneumonia. Breathing is much improved today. Cough is chronic and unchanged. Afebrile, labs reviewed. BP was very elevated over the weekend, steadily improving. 1. Bilateral upper lobe aspiration pneumonia 2. Acute hypoxemic respiratory failure 3. Esophageal strictures 4. Right diaphragm hemiparesis 5. Hypertensive urgency Plan - If BP continues to improve can be discharged today - Augmentin to complete course - Increase Lisinopril to 20mg - Follow sputum culture - Outpatient follow up with pulmonary, chest clinic, and GI - Continue home medications
[2017-09-10 09:35] LABS: ABSOLUTE BASOPHIL COUNT 0 /CUMM (0.0-0.2); ABSOLUTE EOSINOPHIL COUNT 0 /CUMM (0.0-0.7); ABSOLUTE GRANULOCYTE CT 4.4 /CUMM (1.4-6.5); ABSOLUTE LYMPH COUNT 1.7 /CUMM (1.2-3.4); ABSOLUTE MONOCYTE COUNT 0.4 /CUMM (0.10-0.60); BASOPHIL % 0.2 % (0.0-2.0); EOSINOPHIL % 0.1 % (0-5); GRANULOCYTE % 67.3 % (42.2-75.2); HEMATOCRIT 31.2 % (37-47); MEAN CORPUSCULAR HGB 31.4 PG (27.0-31.0); MEAN CORPUSCULAR HGB CONC 33.8 G/DL (33.0-37.0); MEAN CORPUSCULAR VOLUME 93.1 FL (81.0-99.0); MEAN PLATELET VOLUME 7.5 FL (7.4-10.4); PLATELET COUNT 330 /CUMM (130-400); RBC DISTRIBUTION WIDTH 14.2 % (11.5-14.5); RED BLOOD CELL CT 3.36 /CUMM (4.20-5.40); WHITE BLOOD CELL COUNT 6.6 /CUMM (4.8-10.8)
[2017-09-10 09:36] VITALS: BP 168/72
[2017-09-10] MEDS ORDERED: LISINOPRIL10 M1 PO ×2 (13:36→14:09)
--- NOTE | 2017-09-10 13:37 | Patient Discharge Instructions ---
Discharge Instructions General Discharge Information You were seen/treated for: Aspiraiton Pneumonia Special Instructions: Follow-up with your primary care physician within one week of discharge. We have increased her dose of lisinopril to 20 mg daily in response to your hypertension, please discuss this change with your primary care physician. Follow-up with Dr. Daley as previously scheduled for continuing gastrointestinal care, including the results of your colonoscopy. Follow up with your retread mold operator within 1 week of discharge. You had a modified barium swallow done here, it is unlikely that you'll need to repeat this as an outpatient as previously scheduled. Call your doctor or return to the ER if she should experience any fevers, shortness of breath, chest pain. Acute Coronary Syndrome Inclusion Criteria At DC or during hospital stay patient has or had the following: ACS DIAGNOSIS No Discharge Core Measures Meds if any: Prescribed or Continued at Discharge Meds if any: NOT Prescribed or Continued at Discharge Congestive Heart Failure Inclusion Criteria At DC or during hospital stay patient has or had the following: CHF DIAGNOSIS No Discharge Core Measures Meds if any: Prescribed or Continued at Discharge Meds if any: NOT Prescribed or Continued at Discharge Cerebrovascular accident Inclusion Criteria At DC or during hospital stay patient has or had the following: CVA/TIA Diagnosis No Discharge Core Measures Meds if any: Prescribed or Continued at Discharge Meds if any: NOT Prescribed or Continued at Discharge Venous thromboembolism Inclusion Criteria VTE Diagnosis No VTE Type NONE VTE Confirmed by (Test) NONE Discharge Core Measures - Per Current guidelines, there needs to be overlap - treatment for the first 5 days of Warfarin therapy. - If discharged on Warfarin prior to 5 days of - overlap therapy, the patient will need to be - assessed for post discharge needs including - *Post discharge parental anticoagulation - *Warfarin and/or parental anticoagulation education - *Follow up date to check INR post discharge At least 5 days overlap therapy as Inpatient No Meds if any: Prescribed or Continued at Discharge Note: Overlap Therapy is Warfarin and Anticoagulant Meds if any: NOT Prescribed or Continued at Discharge
[2017-09-10] MEDS ORDERED: AMOX-CLAV 875-1 EACH PO ×2 (13:43→14:09)
[2017-09-10] MEDS ORDERED: PREDNISONE20 M1 PO (14:09)
--- NOTE | 2017-09-10 14:41 | PN- Pulmonary ---
Subjective HPI/Critical Care Issues: pt seen and examined feeling better anticipating dc Objective Current Medications: Current Medications Sig/Mikaela Start time Last Medication Dose Route Stop Time Status Admin Acetaminophen 500 MG Q6P PRN 09/08 1100 AC PO Acetylcysteine 2 ML BID 09/08 1117 AC 09/10 INH 1044 Albuterol Sulfate 3 ML BID 09/07 1134 AC 09/10 INH 1044 Albuterol Sulfate 2 PUF 4 TIMES/DAY PRN 09/06 2345 AC INH Alprazolam 0.25 MG ONCE ONE 09/09 2030 DC 09/09 PO 09/09 2031 2149 Amoxicillin/ 875 MG Q12 09/10 1000 AC 09/10 Clavulanate Potassium PO 09/10 2201 0935 Amoxicillin/ 875 MG Q12 09/09 1055 DC 09/09 Clavulanate Potassium PO 09/09 2201 2149 Baclofen 10 MG ONCE ONE 09/10 0830 CAN PO 09/10 0831 Benzonatate 100 MG TID 09/06 2334 AC 09/10 PO 0936 Folic Acid 1 MG DAILY 09/07 1000 AC 09/10 PO 0935 Guaifenesin 600 MG Q12 09/06 2338 AC 09/10 PO 0935 Heparin Sodium 5,000 UNIT Q8 09/06 2200 AC 09/10 (Porcine) SC 0635 Hydralazine HCl 25 MG ONCE ONE 09/09 1500 DC 09/09 PO 09/09 1501 1614 Hydrochlorothiazide 12.5 MG DAILY 09/07 1000 AC 09/10 PO 0936 Labetalol HCl 200 MG BID 09/06 2335 AC 09/10 PO 0936 Lisinopril 10 MG DAILY 09/07 1000 AC 09/10 PO 0638 Methimazole 5 MG SuMoWeFr@1000 09/07 1000 AC 09/10 PO 0936 Methotrexate 7.5 MG QTHURS 09/13 1000 AC PO Montelukast Sodium 10 MG DAILY 09/07 1000 AC 09/10 PO 0936 Pravastatin Sodium 20 MG 1700 09/07 1700 AC 09/09 PO 1613 Prednisone 40 MG DAILY 09/08 1115 AC 09/10 PO 09/12 1001 0936 Vital Signs & I&O Last 24 Hrs of Vitals and I&O: Vital Signs Date Time Temp Pulse Resp B/P B/P Pulse O2 O2 Flow FiO2 Mean Ox Delivery Rate 09/10 1050 94 Room Air 09/10 0936 97.9 67 18 168/72 09/10 0638 180/98 09/10 0620 97.9 67 18 180/98 96 Room Air 09/10 0013 60 176/84 09/09 2210 98.1 71 20 180/90 95 09/09 2149 71 180/90 09/09 1850 95 Room Air 09/09 1800 81 160/90 09/09 1614 72 180/90 09/09 1600 Room Air 09/09 1507 98.1 71 20 176/88 94 Intake & Output 09/10 1600 09/10 0800 09/10 0000 Intake Total 120 480 Output Total Balance 120 480 Intake, Oral 120 480 Patient 168 lb Weight Weight Bed scale Measurement Method Exam Other Physical Findings: gen awake and alert heent ncat cvs s1, s2 lungs scattered rhonchi abd soft bs+ ext without edema Results Last 24 Hrs of Lab Results: Laboratory Tests 09/10/17 0853: Anion Gap 10, Estimated GFR 41 L, BUN/Creatinine Ratio 17.7, CBC w Diff NO MAN DIFF REQ, RBC 3.36 L, MCV 93.1, MCH 31.4 H, MCHC 33.8, RDW 14.2, MPV 7.5, Gran % 67.3, Lymphocytes % 26.4, Monocytes % 6.0, Eosinophils % 0.1, Basophils % 0.2, Absolute Granulocytes 4.4, Absolute Lymphocytes 1.7, Absolute Monocytes 0.4, Absolute Eosinophils 0, Absolute Basophils 0 Impression/Plan Impression/Plan Impression/Plan: Impression 67-year-old woman with a history of asthma rheumatoid arthritis on methotrexate history of esophageal strictures and history of perforation. Paralyzed right hemidiaphragm. Here with aspiration pneumonia and cough. Plan -prednisone 40 mg 5 days total -Follow up ID recommendations -DC planning -f/u with pulmonology upon discharge DVT prophylaxis at all times
--- NOTE | 2017-09-10 23:49 | Discharge Summary ---
Visit Information Visit Dates Admission Date: 09/06/17 Discharge Date: 09/10/17 Hospital Course Course Attending Physician: Zurdo Shaw MD Primary Care Physician: lAlen Villa MD Consulting Request: 1 Consulting Specialty: Infectious Disease Consulting Request: 2 Consulting Specialty: Pulmonary Disease Hospital Course: Patient is a 67-year-old female with a past medical history significant for hypertension, asthma, rheumatoid arthritis on methotrexate, PCKD, esophageal strictures with history of esophageal perforation 6 years ago who presented to the [facility] ED after an episode of hypoxia during a outpatient colonoscopy. She desaturated to the 60s during the procedure and began having a productive cough after awaking, she has a chronic dry cough secondary to right diaphragmatic hemiparesis. On admission vital signs: Temperature 99.5 (MAXIMUM TEMPERATURE 100.7), pulse 88 , respiratory rate 22, BP 188/90, pulse ox 96% on 2 L O2 nasal cannula Labs are significant for leukocytosis (WBC 11.3), potassium 3.4, magnesium 1.4 Patient was admitted to the general medicine floor for aspiration pneumonia. CTA was initially done which ruled out PE. It showed multifocal patchy infiltrates in the left upper lung and bases bilaterally. She was started on IV Unasyn. A formal swallow evaluation and MBS was done. MBS showed no evidence of aspiration. She was restarted on a regular heart healthy diet with thin liquids. She showed clinical improvement and was transitioned to oral Augmentin to complete a 5 day course. Sputum and blood cultures were done which showed no growth. She was given a short course of prednisone for her acute hypoxic respiratory failure, she was able to be weaned off of supplemental O2 before discharge. While admitted patient she was found to be hypertensive on multiple readings including an episode of hypertensive urgency. Her dose of lisinopril was increased to 20 mg daily, the rest of her antihypertensive medications were kept the same. She received all of her normal home medications as an inpatient. New pulmonary nodules seen on CTA, one 3 mm at the left base, one pleural-based 4 mm. Recommended follow-up study in 9 months Allergies: Coded Allergies: Tetanus Vaccines and Toxoid (TETANUS VACCINES & TOXOID) (UNKNOWN 09/29/15) Uncoded Allergies: SEASONAL AND DUST (09/29/15) Significant Procedures: Modified barium swallow was done which showed no evidence of aspiration, there was some slowed clearance in the midesophagus, esophagram would be required to assess esophageal motility is outpatient. EXAM TYPE: CAT - CTA CHEST-PULMONARY EMBOLISM EXAMINATION: CT ANGIOGRAM OF THE CHEST WITH AND WITHOUT CONTRAST (CT PULMONARY ANGIOGRAM FOR PE) CLINICAL INFORMATION: Reason for Study:
Presumptive Dx: COUGH, HEMOPTYSIS, ELEVATED DIMER
Signs Symptoms: RM 22
COMPARISON: 03/05/2012 TECHNIQUE: Prior to contrast administration, noncontrast localization images were obtained. Subsequently, multidetector volumetric imaging was performed from the thoracic inlet to below the diaphragms following the administration of 80 mL Omnipaque 350 intravenous contrast. No contrast reaction reported. Sagittal, coronal, and MIP oblique sagittal reformatted images were obtained on the CT workstation, uploaded to PACS, and reviewed. FINDINGS: There is no filling defect to suggest a pulmonary embolism. Imaging of the lung posadas. Centrally there is no evidence for bulky adenopathy. The hilar regions are comparable to previous. No bulky changes here. Imaging lung posadas. Right lung; Nodule in the right upper lung. Appears stable from previous. Image 17. 3 mm. Patchy atelectasis or infiltrate right base. New nodule at the left base. 4 mm. Image 33. Left lung; Areas of groundglass and patchy infiltrate multifocal left upper lung. Is also evidence of groundglass patchy change in the left lower lobe. There is no effusion here. New nodule left base image 32. 3 mm. Another nodule pleural-based. Image 34. 4 mm. IMPRESSION: No filling defect to suggest pulmonary embolism. Multifocal patchy infiltrate most noted in the left upper lung but also areas of the left base greater than right base. Consistent with infiltrates. Other nodules described which appears new from previous.. Recommend low-dose follow-up in 9 months Disposition Summary Disposition Principal Diagnosis: Aspiration pneumonia Additional Diagnosis: acute hypoxic respiratory failure, hypertensive urgency, hypokalemia, hypomagnesemia, esophageal strictures, new pulmonary nodules Discharge Disposition: home or self care Discharge Instructions General Discharge Information Code Status: Full Code Patient's Diet: Heart healthy diet Patient's Activity: As tolerated Follow-Up Instructions/Appts: Follow-up with PCP one week of discharge. Follow-up with Dr. Daley as previously scheduled for continuing gastrointestinal care, including the results of your colonoscopy. Follow up with your doctor of nurse anesthesia practice within 1 week of discharge. Medications at Discharge Discharge Medications: Continue taking these medications: Labetalol HCl (Labetalol HCl) 200 MG TABLET 1 Tablet ORAL TWICE DAILY Comments: LAST TAKEN: 09/10/17 @ 9 AM Pravastatin Sodium (Pravastatin Sodium) 40 MG TABLET 1 Tablet ORAL DAILY Qty = 90 Comments: LAST TAKEN: 09/09/17 @ 6 PM Hydrochlorothiazide (Hydrochlorothiazide) 12.5 MG CAPSULE 1 Capsule ORAL DAILY Qty = 90 Comments: LAST TAKEN: 09/10/17 @ 9 AM Methotrexate (Methotrexate) 2.5 MG TABLET 3 Tablet ORAL EVERY SUNDAY Qty = 12 Comments: NOT TAKEN IN HOSPITAL Methimazole (Methimazole) 5 MG TABLET 1 Tablet ORAL Qty = 30 Comments: LAST TAKEN: 09/10/17 @ 9 AM Montelukast Sodium (Montelukast Sodium) 10 MG TABLET 1 Tablet ORAL DAILY Qty = 30 Comments: LAST TAKEN: 09/10/17 @ 9 AM Folic Acid (Folic Acid) 1 MG TABLET 1 Tablet ORAL DAILY Qty = 90 Comments: LAST TAKEN: 09/10/17 @ 9 AM Benzonatate (Benzonatate) 200 MG CAPSULE 1 Capsule ORAL THREE TIMES A DAY NEEDED as needed for COUGH Qty = 30 Comments: LAST TAKEN: 09/10/17 @ 9 AM Potassium Gluconate (Potassium) 595 MG (99 MG) TABLET 1 Tablet ORAL DAILY Comments: NOT TAKEN Mv,Ca,Min/Iron Fum/FA/Vit K (Multi For Her Tablet) 18 MG IRON-600 MCG-80 MCG TABLET 1 Tablet ORAL DAILY Comments: LAST TAKEN: 09/10/17 @ 9 AM Albuterol Sulfate (Ventolin Hfa) 90 MCG HFA.AER.AD 2 Puff Inhale through mouth as needed for ASTHMA Comments: NOT TAKEN IN HOSPITAL Start taking the following new medications: Amoxicillin/Clavulanate Potass (Amox-Clav 875-125 MG Tablet) 875 MG-125 MG TABLET 875 Milligram ORAL EVERY 12 HOURS Qty = 1 No Refills Instructions: . Prednisone (Prednisone) 20 MG TABLET 40 Milligram ORAL DAILY Qty = 2 No Refills Comments: LAST TAKEN: 09/10/17 @ 9 AM The following medications have been changed: Old: Lisinopril (Lisinopril) 10 MG TABLET 2 Tablet ORAL DAILY Qty = 30 New: Lisinopril (Lisinopril) 10 MG TABLET 2 Tablet ORAL DAILY Qty = 30 Instructions: . Comments: LAST TAKEN: 09/10/17 @ 6:30 AM Copies To: Allen ROBERTSON,Allen; Thuy ROBERTSON,Peter Rushing
== END 2017-09-10 15:30 | DRG 205 ==
LOC: ERH 14:33 → 2NA 21:05 → ERHI 21:05 → ENRESERV 22:33 → 2NA 09-07 00:06 → ENPENDDIS 09-10 14:23 → 2NA 09-10 15:30
PROVIDERS: Dermatology; Internal Medicine; Physician Assistant; Student in an Organized Health Care Education/Training Program
PROC: 0DBP8ZX Excision of Rectum, Via Natural or Artificial Opening Endoscopic, Diagnostic (ICD-10-PCS; principal; 2017-09-06)
PROC: 0DBN8ZX Excision of Sigmoid Colon, Via Natural or Artificial Opening Endoscopic, Diagnostic (ICD-10-PCS; principal; 2017-09-06)
DX: J95.89 Other postprocedural complications and disorders of respiratory system, not elsewhere classified (principal); J69.0 Pneumonitis due to inhalation of food and vomit; J96.01 Acute respiratory failure with hypoxia; Q61.3 Polycystic kidney, unspecified; J98.6 Disorders of diaphragm; E83.42 Hypomagnesemia; K22.2 Esophageal obstruction; Z86.010 Personal history of colon polyps; K57.30 Diverticulosis of large intestine without perforation or abscess without bleeding; K21.9 Gastro-esophageal reflux disease without esophagitis; K63.5 Polyp of colon; K62.1 Rectal polyp; R05 Cough; J45.909 Unspecified asthma, uncomplicated; M06.9 Rheumatoid arthritis, unspecified; M79.7 Fibromyalgia; M85.80 Other specified disorders of bone density and structure, unspecified site; Y92.238 Other place in hospital as the place of occurrence of the external cause; I10 Essential (primary) hypertension; I16.0 Hypertensive urgency; K22.4 Dyskinesia of esophagus; E87.6 Hypokalemia; Y65.8 Other specified misadventures during surgical and medical care; E05.00 Thyrotoxicosis with diffuse goiter without thyrotoxic crisis or storm; I49.3 Ventricular premature depolarization; Z90.710 Acquired absence of both cervix and uterus; R91.8 Other nonspecific abnormal finding of lung field; Z90.721 Acquired absence of ovaries, unilateral; Z96.652 Presence of left artificial knee joint; Z85.828 Personal history of other malignant neoplasm of skin
CPT/HCPCS: 2NASP; ERO; 36415; 36592; 74230; 82436; 87040; 87070; 87449; 87450; 87804; 87804-59; 88305; 93005; 93010; 96374; 96375; 99291; J0131; J1644; J2405; J3490; J7040; J7608

== ENCOUNTER 2017-11-01 20:35 | Emergency (ER) | payer OTHER, MEDICARE ==
[~2017-11-01] VITALS: Ht 162.6 cm; Wt 73.5 kg
[~2017-11-01 20:35] MED LIST changes: +AMOX-CLAV 875-1 EACH PO; +BENZONATATE200 M1 PO; +FOLIC ACID1 M1 PO; +METHIMAZOLE5 M1 PO; +METHOTREXATE2.5 M2 PO; +MONTELUKAST SOD10 M1 PO; +MULTI FOR HER1 EAC2 PO; +POTASSIUM99 M1 PO; +PREDNISONE20 M1 PO; +VENTOLIN HFA18 GM INH
--- NOTE | 2017-11-01 21:27 | ED GI/GU/ABDOMINAL COMPLAINT ---
History of Present Illness General Chief Complaint: Abdominal Pain/Flank Pain Stated Complaint: ABDOMEN PAIN +NAUSEA Source: patient Exam Limitations: no limitations Vital Signs & Intake/Output Vital Signs & Intake/Output ED Intake and Output 11/03 0000 11/02 1200 Intake Total 1000 Output Total Balance 1000 Intake, IV 1000 Allergies Coded Allergies: Tetanus Vaccines and Toxoid (TETANUS VACCINES & TOXOID) (UNKNOWN 09/29/15) atenolol (UNKNOWN 11/01/17) Uncoded Allergies: SEASONAL AND DUST (09/29/15) Reconcile Medications Albuterol Sulfate (Ventolin Hfa) 90 MCG HFA.AER.AD 2 PUF INH PRN ASTHMA ( Reported) Amoxicillin/Clavulanate Potass (Amox-Clav 875-125 MG Tablet) 875 MG-125 MG TABLET 875 MG PO Q12 PNEUMONIA . Benzonatate 200 MG CAPSULE 1 CAP PO TIDPRN PRN COUGH (Reported) Ciprofloxacin HCl (Cipro) 500 MG TABLET 1 TAB PO BID diverticulitis Folic Acid 1 MG TABLET 1 TAB PO DAILY SUPPLEMENT (Reported) Hydrochlorothiazide 12.5 MG CAPSULE 1 CAP PO DAILY WATER RETENTION (Reported) Labetalol HCl 200 MG TABLET 1 TAB PO BID HBP (Reported) Lisinopril 10 MG TABLET 2 TAB PO DAILY HYPERTENSION . Methimazole 5 MG TABLET 1 TAB PO MONWEDFRISUN THYROID (Reported) Methotrexate 2.5 MG TABLET 3 TAB PO QTHURS RA (Reported) Metronidazole (Flagyl) 500 MG TABLET 1 TAB PO TID diverticulitis Montelukast Sodium 10 MG TABLET 1 TAB PO DAILY ALLERGIES/ASTHMA (Reported) Mv,Ca,Min/Iron Fum/FA/Vit K (Multi For Her Tablet) 18 MG IRON-600 MCG-80 MCG TABLET 1 TAB PO DAILY SUPPLEMENT (Reported) Oxycodone HCl/Acetaminophen (Percocet 5-325 MG Tablet) 5 MG-325 MG TABLET 1 TAB PO BID PRN pain Potassium Gluconate (Potassium) 595 MG (99 MG) TABLET 1 TAB PO DAILY SUPPLEMENT (Reported) Pravastatin Sodium 40 MG TABLET 1 TAB PO DAILY CHOLESTEROL (Reported) Prednisone 20 MG TABLET 40 MG PO DAILY ASTHMA Triage Note: PT TO TRIAGE WITH LLQ ABD PAIN, STABBING THAT COMES IN WAVES AND IS 9/10 FOR 3 DAYS. PT HAS A HX OF DIVERTICULITIS AND STATES IT FEELS SIMILAR PTS TATES TODAY SHE STARTED HAVING CHILLS, AND A T-MAX OF 100.2. DENIES BLOOD IN STOOL, DENIES DIARRHEA, STATES IT HAS BEEN FIRM. PT HAS ALSO BEEN NAUSEOUS WITHOUT VOMITING Triage Nurses Notes Reviewed? yes ? n Is pt currently ? No Onset: Gradual Duration: day(s): Timing: recent history Quality/Severity: moderate Severity Numbers: 9 Location: left lower quadrant Radiation: no radiation Prior Abdominal Problems: similar symptoms HPI: 67yo female with hx of diverticulitis, GERD, polycystic kidney disease presents to ED complaining of LLQ abdominal pain worsening x 4 days. Patient describes pain as 8-9 currently. Pain is located in LLQ without radiation. Patient reports that this pain feels similar to previous episodes of diverticulitis. Patient reports associated bloating and nausea. She also notes intermittent fevers and chills beginning today. Patient reports recent constipation, last bowel movement today. She ate breakfast this morning and has only been drinking fluids since then. The patient denies diarrhea, vomiting, rectal bleeding, rash, dyspnea. Past History Travel History Traveled to [place] past 21 day No Medical History Any Pertinent Medical History? 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 No Review of Systems Review of Systems Constitutional: Reports: see HPI. EENTM: Reports: no symptoms. Respiratory: Reports: no symptoms. Cardiovascular: Reports: no symptoms. GI: Reports: see HPI. Genitourinary: Reports: no symptoms. Musculoskeletal: Reports: no symptoms. Skin: Reports: no symptoms. Neurological/Psychological: Reports: no symptoms. Hematologic/Endocrine: Reports: no symptoms. Immunologic/Allergic: Reports: no symptoms. All Other Systems: Reviewed and Negative Physical Exam Physical Exam General Appearance: well developed/nourished, no apparent distress, alert, awake Head: atraumatic, normal appearance Eyes: Bilateral: normal appearance. Ears, Nose, Throat, Mouth: hearing grossly normal Neck: normal inspection, supple, full range of motion Respiratory: normal breath sounds, no respiratory distress, lungs clear Cardiovascular: regular rate/rhythm Gastrointestinal: normal bowel sounds, soft, no organomegaly, LLQ tenderness with gaurding Back: normal inspection, normal range of motion Extremities: normal range of motion Neurologic/Psych: awake, alert, oriented x 3 Skin: intact, normal color, warm/dry Core Measures ACS in differential dx? No Sepsis Present: No Sepsis Focused Exam Completed? No Progress Differential Diagnosis: appendicitis, bowel obstruction, diverticulitis, gastritis, hernia, kidney stone, ovarian cyst, SBO, UTI/pyelo Plan of Care: Orders Procedure Date/time Status URINALYSIS 11/01 2116 Complete LIPASE 11/01 2116 Complete COMPREHENSIVE METABOLIC PANEL 11/01 2116 Complete CBC WITHOUT DIFFERENTIAL 11/01 2116 Complete AMYLASE 11/01 2116 Complete EKG 11/02 2043 Active Current Medications Sig/Mikaela Start time Last Medication Dose Stop Time Status Admin Ciprofloxacin 500 MG ONCE ONE 11/02 29 UNVr (Cipro) 11/02 30 Metronidazole 500 MG ONCE ONE 11/02 29 UNVr (Flagyl) 11/02 30 Laboratory Tests 11/01/172144: Urine Color YEL, Urine Clarity HAZY H, Urine pH 6.0, Ur Specific [place] 1.025, Urine Protein TRACE H, Urine Ketones NEG, Urine Nitrite NEG, Urine Bilirubin NEG, Urine Urobilinogen 0.2, Ur Leukocyte Esterase MOD H, Ur Microscopic SEDIMENT EXAMINED, Urine RBC RARE, Urine WBC 5-10 H, Ur Epithelial Cells FEW, Urine Bacteria FEW H, Urine Mucus RARE, Urine Hemoglobin NEG, Urine Glucose NEG 11/01/172139: Anion Gap 12, Estimated GFR 35 L, BUN/Creatinine Ratio 17.3, Glucose 113 H, Calcium 9.8, Total Bilirubin 0.6, AST 17, ALT 28, Alkaline Phosphatase 82, Total Protein 6.1 L, Albumin 3.6, Globulin 2.5, Albumin/Globulin Ratio 1.4, Amylase 50, Lipase 45, CBC w Diff NO MAN DIFF REQ, RBC 3.56 L, MCV 92.0, MCH 31.3 H, MCHC 34.0, RDW 14.3, MPV 7.4, Gran % 77.8 H, Lymphocytes % 13.5 L, Monocytes % 5.2, Eosinophils % 1.8, Basophils % 1.7, Absolute Granulocytes 6.9 H, Absolute Lymphocytes 1.2, Absolute Monocytes 0.5, Absolute Eosinophils 0.2, Absolute Basophils 0.2 CT scan shows diverticulitis without other complication. Labs show mild leukocytosis and stable kidney disease. Patient reports improvement in her abdominal pain following IV morphine. Patient has been hospitalized in the past for diverticulitis however states that her last episode was managed well at home. Patient is still tolerating PO. She is currently afebrile with stable vital signs. Patient wishes to go home with oral antibiotics. She was given strict return precautions for worsening symptoms. The patient understands and agrees with plan of care. Diagnostic Imaging: Viewed by Me: CT Scan. Discussed w/RAD: CT Scan. Radiology Impression: PATIENT: RAJENDRA FRANCO PRESENT AGE: 67 PATIENT ACCOUNT NO: [id number] : 49 LOCATION: [facility] ORDERING PHYSICIAN: Marquita HOSKINS SERVICE DATE: 11/01/17 EXAM TYPE: CAT - CT ABD & PELVIS W/O IV CONTRAS EXAMINATION: CT ABDOMEN AND PELVIS WITHOUT CONTRAST CLINICAL INFORMATION: Left lower quadrant abdominal pain. History of diverticulitis, colitis. COMPARISON: CT scan abdomen pelvis 2015 TECHNIQUE: Multidetector volumetric imaging was performed from the superior aspect of the liver through the pubic symphysis. Sagittal and coronal reformatted images were obtained on the technologist's workstation. DLP: 305.26 mGy-cm FINDINGS: LUNG BASES: The visualized lung bases are unremarkable. LIVER, GALLBLADDER, AND BILIARY TREE: The liver is normal in size, shape, and attenuation. No focal hepatic lesion or biliary ductal dilatation is present. The gallbladder is unremarkable with no evidence of radiopaque gallstones, gallbladder wall thickening, or obvious pericholecystic inflammatory changes. PANCREAS: Unremarkable. SPLEEN: Stable round hypodensity at the ld of the spleen measuring 2.2 cm in diameter. ADRENAL GLANDS: Unremarkable. KIDNEYS AND URETERS: There are numerous low attenuating and hypodensity cortical cysts as well as parapelvic cysts in both kidneys. There is a nonobstructive 4 mm stone lower pole right kidney. There is a punctate stone in the upper pole the right kidney. There is also a calcification associated with one of the midpole cortical cyst. There is no ureteral stone. There is no hydronephrosis. BLADDER: Unremarkable. GASTROINTESTINAL TRACT: There is diverticulosis of the colon. Diverticula are most severe at the sigmoid and descending colon diverticula are present throughout the colon. There is an area of focal diverticulitis at the junction of the descending and proximal sigmoid colon. There is focal bowel wall thickening with pericolonic edema. There is no perforation or abscess. There is no bowel obstruction. Moderate amount of stool throughout the colon. The appendix is normal. The small bowel loops are unremarkable. There is a small hiatal hernia. ABDOMINAL WALL: Ventral wall defect of the abdominal wall superior to the umbilicus measuring 4 cm transverse by 5 cm AP with small fat- containing hernia. No herniated bowel loop. LYMPH NODES: Normal. VASCULAR: Atherosclerotic vascular calcification of aorta and iliac vessels without aneurysm. PELVIC VISCERA: Uterus is absent. OSSEOUS STRUCTURES: Degenerative spondylosis of spine with multilevel disc height narrowing, endplate spurs, vacuum disc phenomena and facet joint arthrosis. Dextroscoliosis of the mid lumbar spine. IMPRESSION: 1. Diverticulitis of the colon. 2. Nonobstructive renal calculi. Multiple renal cysts. 3. Stable hypodense lesion at the hilum of the spleen. DICTATED BY: Kailash Castillo MD DATE/TIME DICTATED:11/01/172226 PIPE MACHINE OPERATOR:JOESPH DATE/TIME TRANSCRIBED:11/01/172226 CONFIDENTIAL, DO NOT COPY WITHOUT APPROPRIATE AUTHORIZATION. <Electronically signed in Other Vendor System> SIGNED BY: Kailash Castillo MD 11/01/17 7712 Initial ED EKG: sinus rhythm @84bpm, LAD, nonspecific ST changes Prior EKG: unchanged (09/06/17) Departure Departure Disposition: HOME OR SELF CARE Condition: Stable Clinical Impression Primary Impression: Diverticulitis Secondary Impressions: Abdominal pain Qualifiers: Abdominal location: left lower quadrant Qualified Code: R10.32 - Left lower quadrant pain Referrals: Allen Villa MD (PCP/Family) Additional Instructions: Take full course of antibiotics. Increase fluids. Follow-up with your primary care doctor. Return if you have worsening symptoms or concerns. Please note that there might be incidental findings in your evaluation that are unrelated to the current emergency department visit. Please notify your primary care doctor about this emergency department visit in order to obtain and review all of the testing performed so that these incidental findings can be monitored as needed. If you had an x-ray performed, please understand that some fractures may not be seen on the initial set of x-rays. If your symptoms persist you might need a repeat set of x-rays to check for such a fracture. If you had a laceration evaluated, please understand that foreign bodies such as glass or wood may not be visible to the naked eye or on plain x-rays. If the wound becomes red, swollen, increasingly more painful or if there is any drainage from the wound, please have it reevaluated by a physician for the possibility of a retained foreign body. If you're unable to follow up as outlined in the discharge instructions please return to the emergency department. Thank you for choosing the [facility] Emergency Department for your care. It was a pleasure to serve you today. Departure Forms: Customer Survey General Discharge Information Prescriptions: Current Visit Scripts Ciprofloxacin HCl (Cipro) 1 TAB PO BID #20 TAB Metronidazole (Flagyl) 1 TAB PO TID #30 TAB Oxycodone HCl/Acetaminophen (Percocet 5-325 MG Tablet) 1 TAB PO BID PRN pain #10 TAB
[2017-11-01 21:47] LABS: ABSOLUTE BASOPHIL COUNT 0.2 /CUMM (0.0-0.2); ABSOLUTE EOSINOPHIL COUNT 0.2 /CUMM (0.0-0.7); ABSOLUTE GRANULOCYTE CT 6.9 /CUMM (1.4-6.5); ABSOLUTE LYMPH COUNT 1.2 /CUMM (1.2-3.4); ABSOLUTE MONOCYTE COUNT 0.5 /CUMM (0.10-0.60); BASOPHIL % 1.7 % (0.0-2.0); EOSINOPHIL % 1.8 % (0-5); GRANULOCYTE % 77.8 % (42.2-75.2); HEMATOCRIT 32.7 % (37-47); MEAN CORPUSCULAR HGB 31.3 PG (27.0-31.0); MEAN PLATELET VOLUME 7.4 FL (7.4-10.4); PLATELET COUNT 239 /CUMM (130-400); RBC DISTRIBUTION WIDTH 14.3 % (11.5-14.5); RED BLOOD CELL CT 3.56 /CUMM (4.20-5.40); WHITE BLOOD CELL COUNT 8.8 /CUMM (4.8-10.8)
--- NOTE | 2017-11-01 23:55 | CT SCAN REPORT ---
EXAMINATION: CT ABDOMEN AND PELVIS WITHOUT CONTRAST CLINICAL INFORMATION: Left lower quadrant abdominal pain. History of diverticulitis, colitis. COMPARISON: CT scan abdomen pelvis 09/29/2015 TECHNIQUE: Multidetector volumetric imaging was performed from the superior aspect of the liver through the pubic symphysis. Sagittal and coronal reformatted images were obtained on the technologist's workstation. DLP: 305.26 mGy-cm FINDINGS: LUNG BASES: The visualized lung bases are unremarkable. LIVER, GALLBLADDER, AND BILIARY TREE: The liver is normal in size, shape, and attenuation. No focal hepatic lesion or biliary ductal dilatation is present. The gallbladder is unremarkable with no evidence of radiopaque gallstones, gallbladder wall thickening, or obvious pericholecystic inflammatory changes. PANCREAS: Unremarkable. SPLEEN: Stable round hypodensity at the ld of the spleen measuring 2.2 cm in diameter. ADRENAL GLANDS: Unremarkable. KIDNEYS AND URETERS: There are numerous low attenuating and hypodensity cortical cysts as well as parapelvic cysts in both kidneys. There is a nonobstructive 4 mm stone lower pole right kidney. There is a punctate stone in the upper pole the right kidney. There is also a calcification associated with one of the midpole cortical cyst. There is no ureteral stone. There is no hydronephrosis. BLADDER: Unremarkable. GASTROINTESTINAL TRACT: There is diverticulosis of the colon. Diverticula are most severe at the sigmoid and descending colon diverticula are present throughout the colon. There is an area of focal diverticulitis at the junction of the descending and proximal sigmoid colon. There is focal bowel wall thickening with pericolonic edema. There is no perforation or abscess. There is no bowel obstruction. Moderate amount of stool throughout the colon. The appendix is normal. The small bowel loops are unremarkable. There is a small hiatal hernia. ABDOMINAL WALL: Ventral wall defect of the abdominal wall superior to the umbilicus measuring 4 cm transverse by 5 cm AP with small fat-containing hernia. No herniated bowel loop. LYMPH NODES: Normal. VASCULAR: Atherosclerotic vascular calcification of aorta and iliac vessels without aneurysm. PELVIC VISCERA: Uterus is absent. OSSEOUS STRUCTURES: Degenerative spondylosis of spine with multilevel disc height narrowing, endplate spurs, vacuum disc phenomena and facet joint arthrosis. Dextroscoliosis of the mid lumbar spine. IMPRESSION: 1. Diverticulitis of the colon. 2. Nonobstructive renal calculi. Multiple renal cysts. 3. Stable hypodense lesion at the hilum of the spleen.
[2017-11-02] MEDS ORDERED: CIPRO500 M1 PO (00:21)
[2017-11-02] MEDS ORDERED: FLAGYL500 MG PO (00:21)
[2017-11-02] MEDS ORDERED: PERCOCET 5-3251 EACH PO (00:21)
[2017-11-02 00:34] VITALS: BP 126/65
== END 2017-11-02 00:36 ==
LOC: ERH 20:35
PROVIDERS: Physician Assistant
DX: K57.92 Diverticulitis of intestine, part unspecified, without perforation or abscess without bleeding (principal); R11.0 Nausea; R10.32 Left lower quadrant pain; R50.9 Fever, unspecified; R14.0 Abdominal distension (gaseous); I10 Essential (primary) hypertension; J45.909 Unspecified asthma, uncomplicated
CPT/HCPCS: 74176; 81001; 93005; 93010; 96361; 96374